=== PATIENT | male | born 1950 | race Caucasian/White ===

== ENCOUNTER → 2020-12-09 10:46 | Outpatient (BNVA) | payer SELFPAY | PROVIDERS: PCP Internal Medicine; Visit Provider Urology ==

== ENCOUNTER → 2021-01-06 13:32 | Outpatient (BNVA) | payer MEDICARE, SELFPAY | PROVIDERS: PCP Internal Medicine; Visit Provider Urology | DX: N40.1 Benign prostatic hyperplasia with lower urinary tract symptoms (principal); N13.8 Other obstructive and reflux uropathy; R35.1 Nocturia | CPT/HCPCS: 51798; 99212 ==

== ENCOUNTER → 2021-07-16 08:26 | Outpatient (BNVA) | payer MEDICARE, SELFPAY | PROVIDERS: PCP Internal Medicine; Visit Provider Urology | DX: Z13.89 Encounter for screening for other disorder (principal) | CPT/HCPCS: Q3014 ==

== ENCOUNTER → 2021-09-23 14:17 | Outpatient (BNVA) | payer MEDICARE, SELFPAY | PROVIDERS: PCP Internal Medicine; Visit Provider Urology | DX: Z13.89 Encounter for screening for other disorder (principal) | CPT/HCPCS: Q3014 ==

== ENCOUNTER → 2021-12-29 13:44 | Outpatient (BNVA) | payer MEDICARE, SELFPAY | PROVIDERS: PCP Internal Medicine; Visit Provider Urology | DX: N13.8 Other obstructive and reflux uropathy (principal); R39.12 Poor urinary stream; R35.1 Nocturia; R39.15 Urgency of urination | CPT/HCPCS: 52000; 99212 ==

== ENCOUNTER → 2022-01-18 14:57 | Outpatient (BNVA) | payer MEDICARE, SELFPAY | PROVIDERS: PCP Internal Medicine; Visit Provider Hospitalist | DX: R91.8 Other nonspecific abnormal finding of lung field (principal); R59.1 Generalized enlarged lymph nodes; R06.00 Dyspnea, unspecified; J41.8 Mixed simple and mucopurulent chronic bronchitis; I25.10 Atherosclerotic heart disease of native coronary artery without angina pectoris; I35.0 Nonrheumatic aortic (valve) stenosis | CPT/HCPCS: 99202 ==

== ENCOUNTER 2022-02-04 10:23 | Outpatient (REF) | payer MEDICARE, SELFPAY ==
--- NOTE | ~2022-02-04 | CT_ITS ---
EXAMINATION: CT CHEST WITHOUT CONTRAST CLINICAL INFORMATION: Nonspecific abnormal findings COMPARISON: None TECHNIQUE: Multidetector volumetric CT imaging of the chest was done. Axial MIP volume rendering provided. Sagittal and coronal reformatted images were obtained. This CT examination was performed using dose optimization techniques as appropriate, variously including the following: *Automated exposure control *Adjustment of mA and/or kV according to patient size (this includes techniques or standardized protocols for targeted exams where dose is matched to indication/reason for exam; i.e. extremities or head) *Use of iterative reconstruction technique DLP: 177 mGy-cm FINDINGS: CONVEX GRINDER: Symmetrically expanded lungs LUNGS: There is mosaic lung attenuation in keeping with small airways disease. Mild bronchial wall thickening. In addition to some motion artifact. There is subtle peripheral interlobular septal thickening and reticulation seen anteriorly is much is posteriorly particularly at the lung bases. There are several areas of peripheral nodular opacities, for example a 5 mm juxtapleural right lateral basilar nodule in image 400/601. There is an ovoid 5 x 8 mm nodule in the right posterior costophrenic sulcus image 451/611. 3-4 mm anterior right upper lobe nodule in image 201/611. There are a few scattered calcified granulomata. Triangular 3 x 5 mm medial left upper lobe nodule in image 133. MEDIASTINUM: There is an enlarged 1.8 x 1.6 cm subcarinal lymph node. Numerous prominent but not pathologically enlarged pretracheal lymph nodes are present. Prominent 8 mm right prevascular lymph node. There is some prominence of the right hilum but no definite lymphadenopathy seen. Three-vessel coronary artery calcification. Normal heart size. No pericardial effusion. PLEURA: There is no pleural effusion. No pleural mass or thickening. AXILLA: No lymphadenopathy. UPPER ABDOMEN: No adrenal mass. Right upper quadrant cholecystectomy. OSSEOUS STRUCTURES: Multilevel degenerative changes. No acute or suspicious osseous abnormality. CT/CT chest wo con IMPRESSION: There is a nonspecific enlarged subcarinal lymph node measuring up to 1.8 x 1.6 cm. The etiology is uncertain. Recommend attention on follow-up. There is a background of mosaic lung attenuation suggesting small airways disease. There are peripheral areas of reticulation which may reflect early fibrosis. In addition, there are bilateral subcentimeter nonspecific pulmonary nodules. The largest measures 5 x 8 mm, average diameter 6.5 mm. According to the UPDATED 2017 Fleischner Society recommendations, the advised follow-up imaging for multiple solid nodules, the largest measuring 6 mm or greater, is: LOW RISK PATIENT: CT at 3-6 months, then consider CT at 18-24 months. HIGH RISK PATIENT: CT at 3-6 months, then at 18-24 months.
== END 2022-02-04 10:24 | disposition home or self-care (01) ==
LOC: HO.CT 10:23
PROVIDERS: PCP Internal Medicine; Visit Provider Hospitalist
DX: R91.8 Other nonspecific abnormal finding of lung field (principal)
CPT/HCPCS: 71250

== ENCOUNTER → 2022-02-08 08:50 | Outpatient (BNVA) | payer MEDICARE, SELFPAY | PROVIDERS: PCP Internal Medicine; Visit Provider Hospitalist | DX: R91.8 Other nonspecific abnormal finding of lung field (principal); R59.1 Generalized enlarged lymph nodes; R06.00 Dyspnea, unspecified; J41.8 Mixed simple and mucopurulent chronic bronchitis; I25.10 Atherosclerotic heart disease of native coronary artery without angina pectoris; I35.0 Nonrheumatic aortic (valve) stenosis | CPT/HCPCS: 99212 ==

== ENCOUNTER 2022-02-09 11:49 | Day surgery (SDC) | payer MEDICARE, SELFPAY ==
--- NOTE | 2022-02-08 14:17 | P.CONAN_ITS ---
Documented by User: Brianna Pearson NP 02/08/22 14:58 HPI - Anesthesia Eval Consult details Narrative: 71yo M for Endoscopic Bronchial Ultrasound Follows cardiology with Dr Stinson. Per telephone call between this provider and Dr Stinson 02/08/22, 1400. Pt with mod to moderate-severe aortic stenosis and CAD. Will not pursue treatment until results of EBUS available (will not cath if bronch shows lung CA). Cardiology recommends avoiding tachycardia and keep hemoglobin stable. OK to proceed with bronchoscopy under general anesthesia with increased risk. Case reviewed with Dr Dominguez. OK to proceed with eval DOS if patient understands increased risk under anesthesia. PMFSH Active Problems Active Problems: All Active Problems (Updated 01/18/22 @ 23:04 by Josemanuel Vasquez MD) Aortic stenosis (Acute) CAD (coronary artery disease) (Acute) Dyspnea (Acute) Chronic bronchitis (Acute) Pulmonary nodules (Acute) Lymphadenopathy (Acute) Urinary urgency (Acute) Nocturia (Acute) Weak urinary stream (Acute) BPH w urinary obs/LUTS (Acute) Past Medical History Medical History Aortic stenosis CAD (coronary artery disease) Chronic bronchitis Diabetes Dyspnea Lymphadenopathy Pulmonary nodules Family History Family History Father Heart attack Stroke Mother Heart attack Cancer COPD (chronic obstructive pulmonary disease) Surgical History Surgical History History of renal stent Hx of carpal tunnel repair Hx of cholecystectomy Social History Social History Alcohol intake: current Alcohol intake frequency: holidays/special occasions only Patient Tobacco Use Status: Never used Tobacco Use of substances other than those prescribed or required for medical reasons: No Are you DNR?: No Advance Directives: No Advance Directives Information Provided: Yes Meds Allergies Allergy/AdvReac Type Severity Reaction Status Date / Time fentanyl Allergy Swelling Verified 02/09/22 12:02 Home Medications Medication Instructions Recorded Confirmed Last Taken Type amlodipine 10 mg tablet 10 mg PO DAILY 12/09/20 07/16/21 Unknown History amlodipine 5 mg tablet 5 mg PO DAILY 12/09/20 07/16/21 Unknown History atorvastatin 20 mg tablet 20 mg PO DAILY 12/09/20 07/16/21 Unknown History bromfenac 0.07 % eye drops 1 drp OPHTHALMIC (EYE) DAILY 12/09/20 07/16/21 Unknown History donepezil 10 mg tablet 10 mg PO BEDTIME 12/09/20 07/16/21 Unknown History hydrochlorothiazide 12.5 mg capsule 12.5 mg PO DAILY 12/09/20 07/16/21 Unknown History losartan 100 mg tablet 100 mg PO DAILY 12/09/20 07/16/21 Unknown History metformin 500 mg tablet,extended 1,000 mg PO BID 12/09/20 07/16/21 Unknown History release 24 hr pantoprazole 40 mg tablet,delayed 40 mg PO DAILY 12/09/20 07/16/21 Unknown History release trazodone 50 mg tablet 50 mg PO BID 12/09/20 07/16/21 Unknown History duloxetine 30 mg capsule,delayed 30 mg PO DAILY 07/16/21 07/16/21 Unknown History release carvedilol 3.125 mg tablet 3.125 mg PO BID 02/08/22 Unknown History finasteride 5 mg tablet 5 mg PO DAILY 02/08/22 Unknown History furosemide 40 mg tablet 40 mg PO DAILY 02/08/22 Unknown History oxybutynin chloride 10 mg 10 mg PO DAILY 02/08/22 Unknown History tablet,extended release 24 hr Exam Exam Date and Time: February 08, 2022 1417 Narrative Narrative: CTA with FFR (Per Cardiology note 01/2022) widespread mediastinal hilar lymphadenopathy extensive calcified plaque throughout his coronary arteries prominent calcific plaque in the proximal mid and distal sections of the LAD, did not appear to be obstruction which was confirmed by FFR/CT significant obstructive disease in dominant third obtuse marginal branch vessel as well as the RCA ECHO 10/2021 (Per T/C with Dr Stinson) EF nml basal inferior wall hypokinetic 39mmHg across aortic valve, KAYLA = 1.4cm2 diastolic dysfunction increased left atrial pressure MRI Brain 01/2022 1. No acute/subacute infarct, mass, hemorrhage, or other intracranial abnormality 2. 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 Chronic small vessel disease. Assessment and Plan Assessment Anesthesia Assessment: Chart Reviewed Documented by User: Amanda Dumont MD 02/09/22 13:02 [facility] Past Medical History Medical History Aortic stenosis CAD (coronary artery disease) Chronic bronchitis Diabetes Dyspnea Lymphadenopathy Pulmonary nodules Family History Family History Father Heart attack Stroke Mother Heart attack Cancer COPD (chronic obstructive pulmonary disease) Surgical History Surgical History History of renal stent Hx of carpal tunnel repair Hx of cholecystectomy History of Problems with Anesthesia: No Social History Social History Alcohol intake: current Alcohol intake frequency: holidays/special occasions only Patient Tobacco Use Status: Never used Tobacco Use of substances other than those prescribed or required for medical reasons: No Are you DNR?: No Advance Directives: No Advance Directives Information Provided: Yes Meds Allergies Allergy/AdvReac Type Severity Reaction Status Date / Time fentanyl Allergy Swelling Verified 02/09/22 12:02 Home Medications Medication Instructions Recorded Confirmed Last Taken Type amlodipine 10 mg tablet 10 mg PO DAILY 12/09/20 07/16/21 Unknown History amlodipine 5 mg tablet 5 mg PO DAILY 12/09/20 07/16/21 Unknown History atorvastatin 20 mg tablet 20 mg PO DAILY 12/09/20 07/16/21 Unknown History bromfenac 0.07 % eye drops 1 drp OPHTHALMIC (EYE) DAILY 12/09/20 07/16/21 Unknown History donepezil 10 mg tablet 10 mg PO BEDTIME 12/09/20 07/16/21 Unknown History hydrochlorothiazide 12.5 mg capsule 12.5 mg PO DAILY 12/09/20 07/16/21 Unknown History losartan 100 mg tablet 100 mg PO DAILY 12/09/20 07/16/21 Unknown History metformin 500 mg tablet,extended 1,000 mg PO BID 12/09/20 07/16/21 Unknown History release 24 hr pantoprazole 40 mg tablet,delayed 40 mg PO DAILY 12/09/20 07/16/21 Unknown History release trazodone 50 mg tablet 50 mg PO BID 12/09/20 07/16/21 Unknown History duloxetine 30 mg capsule,delayed 30 mg PO DAILY 07/16/21 07/16/21 Unknown History release carvedilol 3.125 mg tablet 3.125 mg PO BID 02/08/22 Unknown History finasteride 5 mg tablet 5 mg PO DAILY 02/08/22 Unknown History furosemide 40 mg tablet 40 mg PO DAILY 02/08/22 Unknown History oxybutynin chloride 10 mg 10 mg PO DAILY 02/08/22 Unknown History tablet,extended release 24 hr Exam Airway Mallampati Class: III TM Dist: >3cm Neck ROM: Full Loose/Missing/Broken Teeth: No Heart: RRR Lungs: CTA Assessment and Plan Assessment Anesthesia Assessment: Anesthesia Plan Discussed Final Anesthetic Review History of Problems with Anesthesia: No NPO: Yes ASA Class: III Final Preanesthetic Review: Meds/Allgs Chart Reviewed, Consent Obtained/Reviewed and Anes Risks/Benef Reviewed Patient Risk: Intermediate Procedure Risk: Intermediate Anesthetic Plan Anesthetic Plan: GA Disposition: Standard PACU
[2022-02-09 12:08] VITALS: BMI 30.3
--- NOTE | 2022-02-09 12:10 | MHC.SHP ---
Pre-Procedural Eval Section A Date of Service: 02/09/22 The patient is an INPATIENT: No Changes since office visit: No Cold of Flu in the past 2 weeks, No New Medical Problems, No Changes in Medication and No Patient answered all questions The History & Physical has been completed within 30 days and I have reviewed it.: Yes Section B Chief Complaint: enlarged lymph node Allergies: Allergies Allergy/AdvReac Type Severity Reaction Status Date / Time fentanyl Allergy Swelling Verified 02/09/22 12:02 Plan I have reviewed the history and physical and performed a pertinent physical examination on my patient. No changes have occurred unless specified.
[2022-02-09 12:16] LABS: Hematocrit 39.4 % (42.0-52.0); Mean Corpuscular Hemoglobin 29.7 pg (27.0-33.0); Mean Corpuscular Volume 90.2 fL (80.0-98.0); Mean Platelet Volume 9.5 fL (9.4-12.4); Platelet Count 231 X10*3/uL (160-400); Red Blood Count 4.37 X10*6/uL (4.60-5.80); Red Cell Distribution Width 13.2 % (11.0-16.0); White Blood Count 6.8 X10*3/uL (4.8-10.8)
[2022-02-09 12:19] VITALS: BP 194/69; PULSE 54; RESP 18; TEMP 36.7; O2SAT 99
[2022-02-09 12:20] LABS: Glucose, Whole Blood 110 mg/dL (60-115)
[2022-02-09 12:36] LABS: Anion Gap 13 (12-20); Blood Urea Nitrogen 21 mg/dL (9-16); Calcium 10.4 mg/dL (8.4-10.2); Carbon Dioxide 25 mmol/L (22-29); Chloride 106 mmol/L (96-108); Creatinine Clr Calc Pharmacy 59.6; Estimated Glomerular Filt Rate > 60; Glucose Fasting 107 mg/dL (60-99); Potassium 4.3 mmol/L (3.3-5.1); Sodium 140 mmol/L (135-145)
[2022-02-09] MEDS: Lactated Ringers 1,000 ML 100 ML IVCONT (12:53)
--- NOTE | 2022-02-09 14:24 | PM.OP ---
Brief Operative Note Date of Service: 02/09/22 Pre-op diagnosis: lymphadenoathy Post-op diagnosis: other (Lymphadenopathy, inflammation of the arytenoids, thickened pericardium) Procedure: Endobronchial ultrasound bronchoscopy with transbronchial needle aspiration of station 7 and station 11 L, bronchoscopy with washings and brushings Implants: Surgeon: Josemanuel Vasquez MD Was an [place] [employer] used for this Procedure?: No Estimated blood loss (mL): 1 Pathology: other (station 7 and 11L needle aspiration are with flow cytometry, washings and brushings for cytology) Condition: stable Disposition: same day
[2022-02-09 14:25] VITALS: BP 137/52; PULSE 54; RESP 20; TEMP 36.3; O2SAT 99
[2022-02-09 14:40] VITALS: BP 114/95; PULSE 52; RESP 18; O2SAT 98
[2022-02-09 14:55] VITALS: BP 146/52; PULSE 50; RESP 18; O2SAT 98
[2022-02-09 15:10] VITALS: BP 154/53; PULSE 49; RESP 18; O2SAT 98
[2022-02-09 15:25] VITALS: BP 149/56; PULSE 50; RESP 18; O2SAT 98
--- NOTE | 2022-02-11 08:43 | OP_ITS ---
SURGEON: Josemanuel Vasquez MD PREOPERATIVE DIAGNOSIS: POSTOPERATIVE DIAGNOSIS: PROCEDURE PERFORMED: Endobronchial ultrasound bronchoscopy with transbronchial needle aspirations of mediastinal hilar lymph nodes as well as bronchoscopy with washings and brushings. ESTIMATED BLOOD LOSS: COMPLICATIONS: ANESTHESIA: LMA with propofol. ASSISTANTS: SPECIMENS: ASA CLASSIFICATION: 3. PREOPERATIVE DIAGNOSES: Lymphadenopathy and pulmonary nodules. POSTOPERATIVE DIAGNOSES: Lymphadenopathy inflammation of the larynx, primarily the arytenoids, thickened pericardium, and tracheomalacia. DESCRIPTION OF PROCEDURE: The patient was sedated and LMA was in place. The flexible digital bronchoscope with ultrasound, EBUS was introduced via the LMA to the level of the larynx. The larynx appeared to be inflamed with inflammation of the arytenoid suggesting the possibility of reflux disease. The vocal cords did move symmetrically to the midline. After instilling lidocaine, the bronchoscope was then passed the vocal cords to the level of the trachea. There was a little plateauing of the anterior part of the tracheal rings suggesting some degree of malacia, but minimal. No evidence of any dynamic collapse of the airways noted. After instilling additional lidocaine, the bronchoscope with EBUS was then introduced further down to the level of the main joe. Using ultrasound guidance, different lymph node stations were accessed. No significant paratracheal lymph nodes evaluated. He did have about 2 cm subcarinal lymph node and about 1.5 cm hilar lymph node primary on the left hilum. Using the ultrasound guidance, real-time transbronchial needle aspirations were collected from stations 7, multiple passes. Rapid on-site qa software test engineer noted the presence of lymphocytes and some of the specimens were sent for flow cytometry. The other specimens were made into slides without any evidence of any malignancies. The cell block was also be able to visualize in further details. Both station 7 and station 11L were sampled via EBUS, transbronchial needle aspirations. Awaiting results. The bronchoscope was then removed and replaced with the regular bronchoscopy. The flexible digital bronchoscope was inserted over the airway and evaluated the whole tracheobronchial tree up to the subsegmental level. No endobronchial lesions or masses noted. He did have some slight bleeding at the site of the needle aspirations, but minimal, and reached good hemostasis spontaneously. The bronchial washings were collected bilaterally, sent both for cytology and also for microbiology. In addition to that, a cytologic brush was introduced into the right middle lobe, specially because he had a nodule in that distribution and brushings were sent for cytology. The patient tolerated the procedure well. Vital signs were stable throughout the procedure. INTERPRETATION: 1. Successful EBUS with transbronchial needle aspirations of station 7 and 11. 2. Brushings of the right middle lobe. 3. Bilateral lung washings. 4. Evidence of arytenoid inflammation likely from reflux. 5. Minimal degree of tracheomalacia. MD KENNY Cohen/NICOLE / [id number]
== END 2022-02-09 16:14 | disposition home or self-care (01) ==
PROVIDERS: Nurse Practitioner; Absent Provider Internal Medicine Cardiovascular Disease; PCP Internal Medicine; Visit Provider Hospitalist
PROC: (CPT 31652; principal; 2022-02-09 13:00)
DX: R59.1 Generalized enlarged lymph nodes (principal); R91.8 Other nonspecific abnormal finding of lung field; J41.8 Mixed simple and mucopurulent chronic bronchitis; R06.00 Dyspnea, unspecified; Z57.5 Occupational exposure to toxic agents in other industries; I25.10 Atherosclerotic heart disease of native coronary artery without angina pectoris; I35.0 Nonrheumatic aortic (valve) stenosis; E11.9 Type 2 diabetes mellitus without complications; Z79.84 Long term (current) use of oral hypoglycemic drugs; Z79.51 Long term (current) use of inhaled steroids; Z88.8 Allergy status to other drugs, medicaments and biological substances
CPT/HCPCS: 31652; 31623; 36415; 80048; 82947; 85027; 87071; 87116; 87205; 88112; 88172; 88173; 88177; 88184; 88185; 88305; J0171; J1170; J2250; J2405

== ENCOUNTER 2022-02-22 08:32 | Outpatient (REF) | payer MEDICARE, SELFPAY ==
--- NOTE | 2022-02-22 | PFT_ITS ---
INDICATION: Dyspnea. SPIROMETRY: FEV1 to FVC of 80% with an FEV1 of 2.27 L, which is 83% predicted, and an FVC of 2.85 L, which is 76% predicted. No significant response to bronchodilators noted. Maximum voluntary ventilation 59% predicted. LUNG VOLUMES: Total lung capacity 71% predicted. DIFFUSION CAPACITY: DLCO 70% predicted. COMPARISONS: None. INTERPRETATION: No obstructive ventilatory defect. No significant response to bronchodilators noted. There is a moderate decrease in maximum voluntary ventilation secondary to deconditioning and also his cardiovascular disease. His lung volumes do demonstrate a restrictive ventilatory defect consistent with mild restrictive lung disease. In addition to that, there is a mild diffusion impairment, likely secondary to underlying cardiovascular and pulmonary vascular disease. Also to note, the diffusion capacity does correct to normal when correcting for the alveolar volume suggesting some degree of hyperexpansion of the lungs. Clinical correlation warranted. Josemanuel Vasquez MD MR/MODL / [id number]
== END 2022-02-22 08:33 | disposition home or self-care (01) ==
LOC: HO.RESP 08:32
PROVIDERS: PCP Internal Medicine; Visit Provider Hospitalist
DX: R06.00 Dyspnea, unspecified (principal); Z79.899 Other long term (current) drug therapy
CPT/HCPCS: 94060; 94727; 94729

== ENCOUNTER → 2022-02-23 08:20 | Outpatient (BNVA) | payer MEDICARE, SELFPAY | PROVIDERS: PCP Internal Medicine; Visit Provider Urology | DX: N40.1 Benign prostatic hyperplasia with lower urinary tract symptoms (principal); N13.8 Other obstructive and reflux uropathy; R39.12 Poor urinary stream; R35.1 Nocturia | CPT/HCPCS: Q3014 ==

== ENCOUNTER → 2022-03-24 08:58 | Outpatient (BNVA) | payer MEDICARE, SELFPAY | PROVIDERS: PCP Internal Medicine; Visit Provider Hospitalist | DX: Z01.811 Encounter for preprocedural respiratory examination (principal); R91.8 Other nonspecific abnormal finding of lung field; R59.1 Generalized enlarged lymph nodes; J41.8 Mixed simple and mucopurulent chronic bronchitis; R06.00 Dyspnea, unspecified; I25.10 Atherosclerotic heart disease of native coronary artery without angina pectoris; I35.0 Nonrheumatic aortic (valve) stenosis | CPT/HCPCS: 99212 ==

== ENCOUNTER 2022-09-01 12:37 | Outpatient (REF) | payer MEDICARE, SELFPAY ==
--- NOTE | ~2022-09-01 | CT_ITS ---
EXAMINATION: CT CHEST WITHOUT CONTRAST CLINICAL INFORMATION: Pulmonary nodules. COMPARISON: Chest CT from 02/04/2022. TECHNIQUE: Multidetector volumetric CT imaging of the chest was done. Axial MIP volume rendering provided. Sagittal and coronal reformatted images were obtained. This CT examination was performed using dose optimization techniques as appropriate, variously including the following: *Automated exposure control *Adjustment of mA and/or kV according to patient size (this includes techniques or standardized protocols for targeted exams where dose is matched to indication/reason for exam; i.e. extremities or head) *Use of iterative reconstruction technique DLP: 198 mGy-cm FINDINGS: LUNGS AND PLEURA: Lungs chronically have mosaic attenuation there is mild centrilobular emphysema. There is stable appearance of mild peripheral subpleural reticular opacity that mainly involves mid to lower lung zones without honeycombing. There is subsegmental atelectasis of the lingula. No pleural effusion. NODULES: Old small calcified nodule in right upper lobe (209, series 5). 0.3 cm pleural-based nodule of the posterior right upper lobe and 0.3 cm solid nodule in the anterior right upper lobe (206, series 5) are unchanged (163, series 5). 0.5 cm pleural-based nodule of the lateral right lower lobe is unchanged (416, series 5). The ovoid nodule of 0.6 cm average diameter at the right lateral costophrenic sulcus is unchanged (480, series 5). A stable 0.4 cm noncalcified nodule is present in the left upper lobe (153, series 5). No new lung nodule or mass. CARDIOVASCULAR: The heart size is normal. Mitral valve annulus is calcified and aortic valve is replaced. Three-vessel coronary artery atherosclerotic calcification. Thoracic aorta atherosclerosis without aneurysm. Pulmonary arteries are in the normal size range. MEDIASTINUM AND LOWER NECK: No mediastinal mass. The esophagus and thyroid gland are unremarkable. LYMPHATICS: No axillary or internal mammary lymphadenopathy. There is stable mild enlargement of mediastinal lymph nodes. A subcarinal lymph node is approximately 1.2 cm in short axis dimension. A precarinal lymph node with fatty hilum is 1.1 cm in short axis dimension. No enlarging lymph nodes. UPPER ABDOMEN: Adrenal glands are normal. Gallbladder is surgically absent. Atherosclerotic calcification of the aorta, splenic artery and SMA. Adrenal glands are normal. Simple cysts of the kidneys, largest visualized on the right measuring 7.6 cm AP. No renal imaging follow-up is recommended for simple cysts. SKELETAL AND CHEST WALL: There is lack of osseous union of the midline sternotomy. No acute findings within the degenerated spine. Diffuse idiopathic skeletal hyperostosis as manifest by presence of extensive bulky flowing anterior ligament ossification of the thoracic spine. Mild gynecomastia is noted. CT/CT chest wo IV con IMPRESSION: * Lungs chronically have mosaic attenuation which suggests air trapping phenomenon from small airways inflammation as well as mild emphysematous changes. * Chronic mild interstitial lung disease without honeycombing. * Bilateral pulmonary nodules are stable compared to 02/04/2022. If deemed clinically appropriate, based on Fleischner Society guidelines, obtain noncontrast chest CT follow-up in 12 months. * There is stable appearance of mild mediastinal lymphadenopathy. No suspicious enlarging lymph nodes.
== END 2022-09-01 12:38 | disposition home or self-care (01) ==
LOC: HO.CT 12:37
PROVIDERS: PCP Internal Medicine; Visit Provider Hospitalist
DX: R91.8 Other nonspecific abnormal finding of lung field (principal); R59.1 Generalized enlarged lymph nodes
CPT/HCPCS: 71250

== ENCOUNTER → 2022-09-29 08:53 | Outpatient (BNVA) | payer MEDICARE, SELFPAY | PROVIDERS: PCP Internal Medicine; Visit Provider Hospitalist | DX: R91.8 Other nonspecific abnormal finding of lung field (principal); R59.1 Generalized enlarged lymph nodes; J41.8 Mixed simple and mucopurulent chronic bronchitis; I25.10 Atherosclerotic heart disease of native coronary artery without angina pectoris; I35.0 Nonrheumatic aortic (valve) stenosis | CPT/HCPCS: 99212 ==

== ENCOUNTER 2023-04-06 08:53 | Outpatient (AMB) | payer MEDICARE, SELFPAY ==
--- NOTE | 2023-04-06 08:56 | A.OFFVIS_ITS ---
Intake Vital Signs 04/06/23 08:58 Height 5 ft 6 in Weight 185 lb BMI 29.9 BP 110/62 Blood Pressure Location Lt brachial Position Standing Pulse 60 Pulse Source Pulse Oximeter Pulse Oximetry (%) 98 Oxygen Delivery Method Room Air Intake Visit Reasons: COPD Intake Note: pt is here for follow up and states little short of breath, some dizzy, states weird sounds during sleep Allergies fentanyl Allergy (Verified 04/06/23 09:03) Swelling HPI HPI Comments History of Present Illness Details The patient is a 73-year-old gentleman with a known history of CAD, aortic stenosis history of hemorrhagic strokes and now with worsening dyspnea on exertion. 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 He was exposed to multiple fumes and apparently the mask that he was provided was not sufficient. So therefore for about 20 years he was exposed to disease fumes and toxins. At some point, the patient was evaluated by Pulmonary back in early 1999 and he did undergo imaging studies at [facility] where he was told that he likely had lung cancer. Ultimately he did follow-up with Pulmonary that point which ruled out the possibility of lung cancer. He did indeed have underlying pulmonary nodules at that time. More recently the patient has been evaluated for his cardiac issues. He did undergo a recent cardiac CT scan a [facility] which was personally by me. This CT scan that was done on 12/26/2021 demonstrated new once id mediastinal or hilar lymphadenopathy along with evidence of chronic bronchitis and significant air trapping. The imaging study is very limited in view the fact that it is primarily focused on the cardiac pictures and we do not have full will imaging of the lung windows. Therefore really hard to know exactly if the nodular densities have changed in size and there is any evidence of airspace disease elsewhere. But, based on what I see I do not see any evidence of consolidations to be consistent with pneumonia. The patient has not had any recent pulmonary function studies. In regards his multiple ailments he did have a rheumatology evaluation many years ago which evaluated him for different connective tissue conditions including alkalosising spondylitis along with other rheumatological issues. He was told that his workup was negative for any these findings. In view of the significant lymphadenopathy and the underlying pulmonary nodules it is worthwhile looking into this issue again. His cardiac CT scan also demonstrated significant cardiac disease. 02/08/2022 the patient is here for pulmonary follow-up visit. He continues to have shortness of breath. Recently underwent an MRI of the brain demonstrating no acute disease. However he does have chronic changes. he did start the inhaler and his respiratory status has improved. The shortness of breath has been improving which is reassuring. Patient also underwent a repeat CT scan demonstrating persistent lymphadenopathy. He has small subcentimeter pulmonary nodules that are less concerning. In addition to that he did undergo blood work which was pretty nonrevealing as far as the etiology of the lymphadenopathy. I did speak to Cardiology. The per for further evaluation and testing of the lymphadenopathy before putting him through an intensive evaluation for the aortic stenosis and CAD. The patient understands that he is high risk for any procedure due to his underlying cardiovascular disease. Anesthesia did have a discussion with Cardiology the patient does have increased risk but at this point would need to have further evaluation for the lymphadenopathy in order to move for with a cardiac testing. The patient currently is agreeable to undergo endobronchial ultrasound bronchoscopy. Will plan to do that tomorrow February 09. 03/24/2022 the patient is here for a pulmonary follow-up visit. Overall she is doing about the same. Complaining of dyspnea on exertion. We did review his bronchoscopy results. His cultures were negative. Cytology was negative. He did undergo endobronchial ultrasound bronchoscopy in the lymph nodes were consistent with normal lymphocytes. No evidence of any malignancy or lymphoma noted. The patient did have further cardiac evaluation. Appears that he needs both cardiac bypass surgery in on aortic valve replacement. He was going to have surgery but then postponed it now for few weeks from now. In the meantime he did undergo pulmonary function studies. It appears that he has a mild degree of restrictive lung disease. The patient is concerned about surgery. I did explain to him from a pulmonary standpoint the patient does not have significant risks for postoperative pulmonary complications. However, he may need some oxygen specially if the restriction gets worse due to and a the cardiothoracic surgery. The patient may proceed with anesthesia and cardiac surgery from a pulmonary standpoint. 09/29/2022 the patient is here for a pulmonary follow-up visit. He did undergo his surgery. He is healing well from his cardiac surgery. However he has issues with his mentation. Sometimes he is more forgetful per his . He was given a prescription for Trelegy inhaler and he did pick it up. However, he has not used it. His does remind him but he also tends to forget. In the office we did review his last CT scan of the chest that he had recently. He does have some of day pattern in the pulmonary nodules in the lymphadenopathy appears to be stable if not better. With the mosaic pattern I did explain to t he patient that using a bronchodilator will help improve his respiratory capacity. I did provide him with a nebulized treatment in the office in the patient did feel better. Therefore I will go ahead and order a nebulizer for him that he can use twice a day with the hope that he can improve his respiratory capacity. 04/06/2023 the patient is here for pulmonary follow-up visit. The patient is do ing very well from a respiratory status. Seems like after having cardiac surgery his respiratory issues have subsided significantly. He has not required his nebulizer no longer using any inhalers. I did recommend he use a short- acting beta agonist as needed. I did give her prescribe a prescription. Otherwise he can also use the nebulizer as needed. He does have some slight end expiratory wheezing still on examination. He is having issues with question seizures and also vertigo. That is really limiting his the ability to exercise and walk. Hopefully if his symptoms subsided can start exercising more regularly in building up his respiratory capacity. His last CT scan of the chest was back in August 2022 demonstrating pulmonary nodules. Will plan to repeat the CT scan sometime in the winter of 2023 to follow-up with the pulmonary nodules. [facility] Medical History Aortic stenosis CAD (coronary artery disease) Chronic bronchitis Diabetes Dyspnea Lymphadenopathy Pulmonary nodules Surgical History History of renal stent Hx of carpal tunnel repair Hx of cholecystectomy Family History Father Heart attack Stroke Mother Heart attack Cancer COPD (chronic obstructive pulmonary disease) Social History Alcohol intake: current Alcohol intake frequency: holidays/special occasions only Patient Tobacco Use Status: Never used Tobacco Review of Systems Const Reports body aches and Reports fatigue Eyes Denies exophthalmos ENT Denies change in voice Card Denies chest pain and Reports dyspnea on exertion Resp Reports cough, Reports dyspnea on exertion and Denies wheezing GI Denies hematochezia Reports no additional complaints Musc Reports back pain, Reports myalgias and Reports arthralgias Skin/Breast Denies rash Neuro Reports no additional complaints, Denies Abnormal speech present and Reports memory loss Psych Reports no additional complaints and Reports memory loss Endo Reports no additional complaints and Reports fatigue Sea/Lymph Reports no additional complaints Aller/Immun Reports no additional complaints and Denies wheezing Physical Exam Vital Signs: Last Vital Signs Pulse 60 04/06/23 08:58 BP 110/62 04/06/23 08:58 Pulse Ox 98 04/06/23 08:58 Oxygen Delivery Method Room Air 04/06/23 08:58 BMI result Body Mass Index 29.9 Const General: alert Neck Neck: Yes normal visual inspection, Yes full ROM and Yes no lymphadenopathy Chest Chest palpation & inspection: normal inspection of the chest Resp Auscultation: clear to auscultation bilaterally and no wheezes Cardio Rate: regular rate Rhythm: regular rhythm Heart sounds: S1 normal heart sound present, S2 normal heart sound present and Murmur heart sound present GI Palpation (GI): Soft to palpation and nontender Auscultation: normal bowel sounds Skin General skin exam: rashes and/or lesions noted Neuro Speech: No Abnormal speech present Assessment & Plan Assessment & Plan (1) Pulmonary nodules: Code(s): R91.8 - Other nonspecific abnormal finding of lung field (2) Lymphadenopathy: Code(s): R59.1 - Generalized enlarged lymph nodes (3) Chronic bronchitis: Code(s): J42 - Unspecified chronic bronchitis Qualifiers: Chronic bronchitis type: mixed simple and mucopurulent Qualified Code(s): J41.8 - Mixed simple and mucopurulent chronic bronchitis (4) Dyspnea: Comment: better Code(s): R06.00 - Dyspnea, unspecified Qualifiers: Dyspnea type: dyspnea on exertion Qualified Code(s): R06.00 - Dyspnea, unspecified (5) CAD (coronary artery disease): Code(s): I25.10 - Atherosclerotic heart disease of [place] coronary artery without angina pectoris Qualifiers: Associated angina: without angina Coronary Disease-Associated Artery/Lesion type: unspecified vessel or lesion type [place] vs. transplanted heart: [place] heart Qualified Code(s): I25.10 - Atherosclerotic heart disease of [place] coronary artery without angina pectoris Plan stop Trelegy inhaler for his chronic bronchitis stop Nebulizer with Duoneb BID MIKE as needed Repeat CT scan of the chest in September 2023 Follow-up in 6-8 months Orders: Orders CT chest wo IV con 10/20/23 R91.8 - Other nonspecific abnormal finding of lung field Medications: New albuterol sulfate 90 mcg/actuation 2 inhalations inhalation Q6H PRN 18 grams 12RF shortness of breath or wheezing 30 days J44.9 - Chronic obstructive pulmonary disease, unspecified Coding Level of Care Code Est Pt Level 4 (56777) Diagnoses Pulmonary nodules R91.8 Lymphadenopathy R59.1 Chronic bronchitis J41.8 Chronic bronchitis type: mixed simple and mucopurulent Dyspnea R06.00 Dyspnea type: dyspnea on exertion CAD (coronary artery disease) I25.10 Associated angina: without angina Coronary Disease-Associated Artery/Lesion type: unspecified vessel or lesion type [place] vs. transplanted heart: [place] heart Time Spent (min) 18
[2023-04-06 08:58] VITALS: BP 110/62; PULSE 60; O2SAT 98; BMI 29.9
== END 2023-04-06 09:24 | disposition home or self-care (01) ==
PROVIDERS: PCP Internal Medicine; Visit Provider Hospitalist
DX: R91.8 Other nonspecific abnormal finding of lung field (principal); R59.1 Generalized enlarged lymph nodes; J41.8 Mixed simple and mucopurulent chronic bronchitis; R06.00 Dyspnea, unspecified; I25.10 Atherosclerotic heart disease of native coronary artery without angina pectoris
CPT/HCPCS: 99214

== ENCOUNTER → 2023-04-06 08:53 | Outpatient (BNVA) | payer MEDICARE, SELFPAY | PROVIDERS: Visit Provider Hospitalist | DX: J41.8 Mixed simple and mucopurulent chronic bronchitis (principal); R91.8 Other nonspecific abnormal finding of lung field; R59.1 Generalized enlarged lymph nodes; R06.00 Dyspnea, unspecified; I25.10 Atherosclerotic heart disease of native coronary artery without angina pectoris | CPT/HCPCS: 99212 ==

== ENCOUNTER 2023-04-27 09:08 | Outpatient (AMB) | payer MEDICARE, SELFPAY ==
[2023-04-27 09:35] VITALS: BP 138/70; PULSE 78; O2SAT 98; BMI 29.6
--- NOTE | 2023-04-27 09:35 | A.OFFVIS_ITS ---
Intake Vital Signs 04/27/23 09:35 Height 5 ft 6 in Weight 183 lb 3.266 oz BMI 29.6 BP 138/70 Blood Pressure Location Lt brachial Position Sitting Pulse 78 Pulse Source Pulse Oximeter Pulse Oximetry (%) 98 Oxygen Delivery Method Room Air Intake Visit Reasons: copd/ER follow up Business Management Specialist Required: No Allergies fentanyl Allergy (Verified 04/27/23 09:39) Swelling HPI HPI Comments History of Present Illness Details The patient is a 73-year-old gentleman with a known history of CAD, aortic stenosis history of hemorrhagic strokes and now with worsening dyspnea on exertion. 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 He was exposed to multiple fumes and apparently the mask that he was provided was not sufficient. So therefore for about 20 years he was exposed to disease fumes and toxins. At some point, the patient was evaluated by Pulmonary back in early 1999 and he did undergo imaging studies at [facility] where he was told that he likely had lung cancer. Ultimately he did follow-up with Pulmonary that point which ruled out the possibility of lung cancer. He did indeed have underlying pulmonary nodules at that time. More recently the patient has been evaluated for his cardiac issues. He did undergo a recent cardiac CT scan a [facility] which was personally by me. This CT scan that was done on 12/26/2021 demonstrated new once id mediastinal or hilar lymphadenopathy along with evidence of chronic bronchitis and significant air trapping. The imaging study is very limited in view the fact that it is primarily focused on the cardiac pictures and we do not have full will imaging of the lung windows. Therefore really hard to know exactly if the nodular densities have changed in size and there is any evidence of airspace disease elsewhere. But, based on what I see I do not see any evidence of consolidations to be consistent with pneumonia. The patient has not had any recent pulmonary function studies. In regards his multiple ailments he did have a rheumatology evaluation many years ago which evaluated him for different connective tissue conditions including alkalosising spondylitis along with other rheumatological issues. He was told that his workup was negative for any these findings. In view of the significant lymphadenopathy and the underlying pulmonary nodules it is worthwhile looking into this issue again. His cardiac CT scan also demonstrated significant cardiac disease. 02/08/2022 the patient is here for pulmonary follow-up visit. He continues to have shortness of breath. Recently underwent an MRI of the brain demonstrating no acute disease. However he does have chronic changes. he did start the inhaler and his respiratory status has improved. The shortness of breath has been improving which is reassuring. Patient also underwent a repeat CT scan demonstrating persistent lymphadenopathy. He has small subcentimeter pulmonary nodules that are less concerning. In addition to that he did undergo blood work which was pretty nonrevealing as far as the etiology of the lymphadenopathy. I did speak to Cardiology. The per for further evaluation and testing of the lymphadenopathy before putting him through an intensive evaluation for the aortic stenosis and CAD. The patient understands that he is high risk for any procedure due to his underlying cardiovascular disease. Anesthesia did have a discussion with Cardiology the patient does have increased risk but at this point would need to have further evaluation for the lymphadenopathy in order to move for with a cardiac testing. The patient currently is agreeable to undergo endobronchial ultrasound bronchoscopy. Will plan to do that tomorrow February 09. 03/24/2022 the patient is here for a pulmonary follow-up visit. Overall she is doing about the same. Complaining of dyspnea on exertion. We did review his bronchoscopy results. His cultures were negative. Cytology was negative. He did undergo endobronchial ultrasound bronchoscopy in the lymph nodes were consistent with normal lymphocytes. No evidence of any malignancy or lymphoma noted. The patient did have further cardiac evaluation. Appears that he needs both cardiac bypass surgery in on aortic valve replacement. He was going to have surgery but then postponed it now for few weeks from now. In the meantime he did undergo pulmonary function studies. It appears that he has a mild degree of restrictive lung disease. The patient is concerned about surgery. I did explain to him from a pulmonary standpoint the patient does not have significant risks for postoperative pulmonary complications. However, he may need some oxygen specially if the restriction gets worse due to and a the cardiothoracic surgery. The patient may proceed with anesthesia and cardiac surgery from a pulmonary standpoint. 09/29/2022 the patient is here for a pulmonary follow-up visit. He did undergo his surgery. He is healing well from his cardiac surgery. However he has issues with his mentation. Sometimes he is more forgetful per his . He was given a prescription for Trelegy inhaler and he did pick it up. However, he has not used it. His does remind him but he also tends to forget. In the office we did review his last CT scan of the chest that he had recently. He does have some of day pattern in the pulmonary nodules in the lymphadenopathy appears to be stable if not better. With the mosaic pattern I did explain to the patient that using a bronchodilator will help improve his respiratory capacity. I did provide him with a nebulized treatment in the office in the patient did feel better. Therefore I will go ahead and order a nebulizer for him that he can use twice a day with the hope that he can improve his resp iratory capacity. 04/06/2023 the patient is here for pulmonary follow-up visit. The patient is doing very well from a respiratory status. Seems like after having cardiac surgery his respiratory issues have subsided significantly. He has not required his nebulizer no longer using any inhalers. I did recommend he use a short- acting beta agonist as needed. I did give her prescribe a prescription. Otherwise he can also use the nebulizer as needed. He does have some slight end expiratory wheezing still on examination. He is having issues with question seizures and also vertigo. That is really limiting his the ability to exercise and walk. Hopefully if his symptoms subsided can start exercising more regularly in building up his respiratory capacity. His last CT scan of the chest was back in August 2022 demonstrating pulmonary nodules. Will plan to repeat the CT scan sometime in the winter of 2023 to follow-up with the pulmonary nodules. 04/27/2023 The patient is here for a hospital F/U visit. Having alot of GI complaints with N/V and diarrhea. He also had subjective fevers and chills, fatigue and weight loss. He was admitted to [facility] and had aCT abdomen followed by a CT chest. I personally reviewed the CT chest from 09/09 and 03/2023. The appears to have a 5cm mass like density in the left infrahilar area associated with a post obstructive pneumonia and pleural effusion. He was told her likely had cancer. He did not want to pursue any agressive dianostic interventions. He is aggreeable to a PET scan. In the meantime, we will keep him a longer course of antibiotics. [facility] Medical History (Updated 04/27/23 @ 22:58 by Josemanuel Vasquez MD) Aortic stenosis CAD (coronary artery disease) Chronic bronchitis Diabetes Dyspnea Lung mass Lymphadenopathy Pulmonary nodules Surgical History History of renal stent Hx of carpal tunnel repair Hx of cholecystectomy Family History Father Heart attack Stroke Mother Heart attack Cancer COPD (chronic obstructive pulmonary disease) Social History Alcohol intake: current Alcohol intake frequency: holidays/special occasions only Patient Tobacco Use Status: Never used Tobacco Review of Systems Const Reports body aches, Reports chills, Reports fatigue, Reports fever(s), Reports poor appetite and Reports weight loss Eyes Denies exophthalmos ENT Denies change in voice Card Denies chest pain and Reports dyspnea on exertion Resp Reports cough, Reports dyspnea on exertion and Denies wheezing GI Reports as per HPI, Reports bloating, Denies hematochezia, Reports change in stool character, Reports constipation, Reports diarrhea, Reports loose stools and Reports vomiting Reports no additional complaints Musc Reports back pain, Reports myalgias and Reports arthralgias Skin/Breast Denies rash Neuro Reports no additional complaints, Denies Abnormal speech present and Reports memory loss Psych Reports no additional complaints and Reports memory loss Endo Reports no additional complaints and Reports fatigue Sea/Lymph Reports no additional complaints Aller/Immun Reports no additional complaints and Denies wheezing Physical Exam Vital Signs: Last Vital Signs Pulse 78 04/27/23 09:35 BP 138/70 04/27/23 09:35 Pulse Ox 98 04/27/23 09:35 Oxygen Delivery Method Room Air 04/27/23 09:35 BMI result Body Mass Index 29.6 Const General: alert Neck Neck: Yes normal visual inspection, Yes full ROM and Yes no lymphadenopathy Chest Chest palpation & inspection: normal inspection of the chest Resp Auscultation: clear to auscultation bilaterally and no wheezes Cardio Rate: regular rate Rhythm: regular rhythm Heart sounds: S1 normal heart sound present, S2 normal heart sound present and Murmur heart sound present GI Palpation (GI): Soft to palpation and nontender Auscultation: normal bowel sounds Skin General skin exam: rashes and/or lesions noted Neuro Speech: No Abnormal speech present Assessment & Plan Assessment & Plan (1) Lung mass: Code(s): R91.8 - Other nonspecific abnormal finding of lung field (2) Pulmonary nodules: Code(s): R91.8 - Other nonspecific abnormal finding of lung field (3) Lymphadenopathy: Code(s): R59.1 - Generalized enlarged lymph nodes (4) Chronic bronchitis: Code(s): J42 - Unspecified chronic bronchitis Qualifiers: Chronic bronchitis type: mixed simple and mucopurulent Qualified Code(s): J41.8 - Mixed simple and mucopurulent chronic bronchitis (5) Dyspnea: Comment: better Code(s): R06.00 - Dyspnea, unspecified Qualifiers: Dyspnea type: dyspnea on exertion Qualified Code(s): R06.00 - Dyspnea, unspecified (6) CAD (coronary artery disease): Code(s): I25.10 - Atherosclerotic heart disease of [place] coronary artery without angina pectoris Qualifiers: Coronary Disease-Associated Artery/Lesion type: unspecified vessel or lesion type [place] vs. transplanted heart: [place] heart Associated angina: without angina Qualified Code(s): I25.10 - Atherosclerotic heart disease of [place] coronary artery without angina pectoris Plan PET scan to assess lung mass in the left infrahilar mass start Augmentin MIKE as needed Follow-up in 3-4 weeks Orders: Orders PET CT fusion skull to thigh Today R91.8 - Other nonspecific abnormal finding of lung field Medications: New amoxicillin-pot clavulanate 875-125 mg 1 tab PO BID 21 days 42 tabs 0RF Coding Level of Care Code Est Pt Level 5 (02655) Diagnoses Lung mass R91.8 Pulmonary nodules R91.8 Lymphadenopathy R59.1 Chronic bronchitis J41.8 Chronic bronchitis type: mixed simple and mucopurulent Dyspnea R06.00 Dyspnea type: dyspnea on exertion CAD (coronary artery disease) I25.10 Coronary Disease-Associated Artery/Lesion type: unspecified vessel or lesion type [place] vs. transplanted heart: [place] heart Associated angina: without angina Time Spent (min) 45
== END 2023-04-27 10:11 | disposition home or self-care (01) ==
PROVIDERS: PCP Internal Medicine; Visit Provider Hospitalist
DX: R91.8 Other nonspecific abnormal finding of lung field (principal); R59.1 Generalized enlarged lymph nodes; J41.8 Mixed simple and mucopurulent chronic bronchitis; I25.10 Atherosclerotic heart disease of native coronary artery without angina pectoris
CPT/HCPCS: 99214

== ENCOUNTER → 2023-04-27 09:08 | Outpatient (BNVA) | payer MEDICARE, SELFPAY | PROVIDERS: PCP Internal Medicine; Visit Provider Hospitalist | DX: R91.8 Other nonspecific abnormal finding of lung field (principal); R59.1 Generalized enlarged lymph nodes; J41.8 Mixed simple and mucopurulent chronic bronchitis; R06.00 Dyspnea, unspecified; I25.10 Atherosclerotic heart disease of native coronary artery without angina pectoris | CPT/HCPCS: 99212 ==

== ENCOUNTER 2023-05-26 09:40 | Outpatient (AMB) | payer MEDICARE, SELFPAY ==
[2023-05-26 10:15] VITALS: BP 124/60; PULSE 60; O2SAT 100; BMI 29.0
--- NOTE | 2023-05-26 10:15 | A.OFFVIS_ITS ---
Intake Vital Signs 05/26/23 10:15 Height 5 ft 6 in Weight 180 lb BMI 29.0 BP 124/60 Blood Pressure Location Rt brachial Position Sitting Pulse 60 Pulse Source Pulse Oximeter Pulse Oximetry (%) 100 Oxygen Delivery Method Room Air Intake Visit Reasons: copd Allergies fentanyl Allergy (Verified 05/26/23 10:16) Swelling erythromycin base Adverse Reaction (Severe, Verified 05/26/23 10:16) Rash HPI HPI Comments History of Present Illness Details The patient is a 73-year-old gentleman with a known history of CAD, aortic stenosis history of hemorrhagic strokes and now with worsening dyspnea on exertion. 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 He was exposed to multiple fumes and apparently the mask that he was provided was not sufficient. So therefore for about 20 years he was exposed to disease fumes and toxins. At some point, the patient was evaluated by Pulmonary back in early 1999 and he did undergo imaging studies at [facility] where he was told that he likely had lung cancer. Ultimately he did follow-up with Pulmonary that point which ruled out the possibility of lung cancer. He did indeed have underlying pulmonary nodules at that time. More recently the patient has been evaluated for his cardiac issues. He did undergo a recent cardiac CT scan a [facility] which was personally by me. This CT scan that was done on 12/26/2021 demonstrated new once id mediastinal or hilar lymphadenopathy along with evidence of chronic bronchitis and significant air trapping. The imaging study is very limited in view the fact that it is pr imarily focused on the cardiac pictures and we do not have full will imaging of the lung windows. Therefore really hard to know exactly if the nodular densities have changed in size and there is any evidence of airspace disease elsewhere. But, based on what I see I do not see any evidence of consolidations to be consistent with pneumonia. The patient has not had any recent pulmonary function studies. In regards his multiple ailments he did have a rheumatology evaluation many years ago which evaluated him for different connective tissue conditions including alkalosising spondylitis along with other rheumatological issues. He was told that his workup was negative for any these findings. In view of the significant lymphadenopathy and the underlying pulmonary nodules it is worthwhile looking into this issue again. His cardiac CT scan also demonstrated significant cardiac disease. 02/08/2022 the patient is here for pulmonary follow-up visit. He continues to have shortness of breath. Recently underwent an MRI of the brain demonstrating no acute disease. However he does have chronic changes. he did start the inhaler and his respiratory status has improved. The shortness of breath has been improving which is reassuring. Patient also underwent a repeat CT scan demonstrating persistent lymphadenopathy. He has small subcentimeter pulmonary nodules that are less concerning. In addition to that he did undergo blood work which was pretty nonrevealing as far as the etiology of the lymphadenopathy. I did speak to Cardiology. The per for further evaluation and testing of the lymphadenopathy before putting him through an intensive evaluation for the aortic stenosis and CAD. The patient understands that he is high risk for any procedure due to his underlying cardiovascular disease. Anesthesia did have a discussion with Cardiology the patient does have increased risk but at this point would need to have further evaluation for the lymphadenopathy in order to move for with a cardiac testing. The patient currently is agreeable to undergo endobronchial ultrasound bronchoscopy. Will plan to do that tomorrow February 09. 03/24/2022 the patient is here for a pulmo nary follow-up visit. Overall she is doing about the same. Complaining of dyspnea on exertion. We did review his bronchoscopy results. His cultures were negative. Cytology was negative. He did undergo endobronchial ultrasound bronchoscopy in the lymph nodes were consistent with normal lymphocytes. No evidence of any malignancy or lymphoma noted. The patient did have further cardiac evaluation. Appears that he needs both cardiac bypass surgery in on aortic valve replacement. He was going to have surgery but then postponed it now for few weeks from now. In the meantime he did undergo pulmonary function studies. It appears that he has a mild degree of restrictive lung disease. The patient is concerned about surgery. I did explain to him from a pulmonary standpoint the patient does not have significant risks for postoperative pulmonary complications. However, he may need some oxygen specially if the restriction gets worse due to and a the cardiothoracic surgery. The patient may proceed with anesthesia and cardiac surgery from a pulmonary standpoint. 09/29/2022 the patient is here for a pul onione follow-up visit. He did undergo his surgery. He is healing well from his cardiac surgery. However he has issues with his mentation. Sometimes he is more forgetful per his . He was given a prescription for Trelegy inhaler and he did pick it up. However, he has not used it. His does remind him but he also tends to forget. In the office we did review his last CT scan of the chest that he had recently. He does have some of day pattern in the pulmonary nodules in the lymphadenopathy appears to be stable if not better. With the mosaic pattern I did explain to the patient that using a bronchodilator will help improve his respiratory capacity. I did provide him with a nebulized treatment in the office in the patient did feel better. Therefore I will go ahead and order a nebulizer for him that he can use twice a day with the hope that he can improve his respiratory capacity. 04/06/2023 the patient is here for pulmon ar follow-up visit. The patient is doing very well from a respiratory status. Seems like after having cardiac surgery his respiratory issues have subsided significantly. He has not required his nebulizer no longer using any inhalers. I did recommend he use a short- acting beta agonist as needed. I did give her prescribe a prescription. Otherwise he can also use the nebulizer as needed. He does have some slight end expiratory wheezing still on examination. He is having issues with question seizures and also vertigo. That is really limiting his the ability to exercise and walk. Hopefully if his symptoms subsided can start exercising more regularly in building up his respiratory capacity. His last CT scan of the [facility] was back in August 2022 demonstrating pulmonary nodules. Will plan to repeat the CT scan sometime in the winter of 2023 to follow-up with the pulmonary nodules. 04/27/2023 The patient is here for a [facility] F/U visit. Having alot of GI complaints with N/V and diarrhea. He also had subjective fevers and chills, fatigue and weight loss. He was [place] [facility] and had aCT abdomen followed by a CT chest. I personally reviewed the CT chest from 09/09 and 03/2023. The appears to have a 5cm mass like density in the left infrahilar area associated with a post obstructive pneumonia and pleural effusion. He was told her likely had cancer. He did not want to pursue any agressive dianostic interventions. He is aggreeable to a PET scan. In the meantime, we will keep him a longer course of antibiotics. 05/26/2023 the patient is here for pulmona ry follow-up visit. Overall the patient has been feeling better. His GI symptoms have been subsiding as well. The subjective fevers and chills also have been subsiding. He completed 3 weeks of the Augmentin. The patient did undergo a PET scan. We personally reviewed. It appears that he does have some FDG activity around the periphery of the left infrahilar density on the left side. Within the density appears that it is without any significant metabolic activity. This suggests that is either necrotic tissue or Fluid. The fact that he responded to antibiotics suggesting likely a lung abscess. Also some FDG activity of the lymph nodes. He also has other extrapulmonary findings such as thickened bladder enlarged prostate. he is currently being evaluated for those issues by Urology. Based on the fact the patient clinically is feeling better will go ahead and we the CT scan 6 weeks after 3 additional weeks of antibiotics. If the area still continues to be abnormal then further diagnostic interventions are warranted. The patient is agreeable at this point. [facility] Medical History (Updated 04/27/23 @ 22:58 by Josemanuel Vasquez MD) Lung mass Diabetes Aortic stenosis CAD (coronary artery disease) Dyspnea Chronic bronchitis Pulmonary nodules Lymphadenopathy Surgical History History of renal stent Hx of cholecystectomy Hx of carpal tunnel repair Family History Father Heart attack Stroke Mother Heart attack Cancer COPD (chronic obstructive pulmonary disease) Social History Alcohol intake: current Alcohol intake frequency: holidays/special occasions only Patient Tobacco Use Status: Never used Tobacco Review of Systems Const Denies body aches, Denies chills, Denies fatigue, Denies fever(s), Reports poor appetite and Denies weight loss Eyes Denies exophthalmos ENT Denies change in voice Card Denies chest pain and Reports dyspnea on exertion Resp Reports cough, Reports dyspnea on exertion and Denies wheezing GI Reports as per HPI, Reports bloating, Denies hematochezia, Reports change in stool character, Reports constipation, Reports diarrhea, Reports loose stools and Denies vomiting Reports no additional complaints Musc Reports back pain, Reports myalgias and Reports arthralgias Skin/Breast Denies rash Neuro Reports no additional complaints, Denies Abnormal speech present and Reports memory loss Psych Reports no additional complaints and Reports memory loss Endo Reports no additional complaints and Denies fatigue Sea/Lymph Reports no additional complaints Aller/Immun Reports no additional complaints and Denies wheezing Physical Exam Vital Signs: Last Vital Signs Pulse 60 05/26/23 10:15 BP 124/60 05/26/23 10:15 Pulse Ox 100 05/26/23 10:15 Oxygen Delivery Method Room Air 05/26/23 10:15 BMI result Body Mass Index 29.0 Const General: alert Neck Neck: Yes normal visual inspection, Yes full ROM and Yes no lymphadenopathy Chest Chest palpation & inspection: normal inspection of the chest Resp Auscultation: clear to auscultation bilaterally and no wheezes Cardio Rate: regular rate Rhythm: regular rhythm Heart sounds: S1 normal heart sound present, S2 normal heart sound present and Murmur heart sound present GI Palpation (GI): Soft to palpation and nontender Auscultation: normal bowel sounds Skin General skin exam: rashes and/or lesions noted Neuro Speech: No Abnormal speech present Assessment & Plan Assessment & Plan (1) Lung mass: Code(s): R91.8 - Other nonspecific abnormal finding of lung field (2) Pulmonary nodules: Code(s): R91.8 - Other nonspecific abnormal finding of lung field (3) Lymphadenopathy: Code(s): R59.1 - Generalized enlarged lymph nodes (4) Chronic bronchitis: Code(s): J42 - Unspecified chronic bronchitis Qualifiers: Chronic bronchitis type: mixed simple and mucopurulent Qualified Code(s): J41.8 - Mixed simple and mucopurulent chronic bronchitis (5) Dyspnea: Comment: better Code(s): R06.00 - Dyspnea, unspecified Qualifiers: Dyspnea type: dyspnea on exertion Qualified Code(s): R06.00 - Dyspnea, unspecified (6) CAD (coronary artery disease): Code(s): I25.10 - Atherosclerotic heart disease of [place] coronary artery without angina pectoris Qualifiers: Coronary Disease-Associated Artery/Lesion type: unspecified vessel or lesion type [place] vs. transplanted heart: [place] heart Associated angina: without angina Qualified Code(s): I25.10 - Atherosclerotic heart disease of [place] coronary artery without angina pectoris Plan continue Augmentin for total of 6 weeks to treat a lung abscess continue probiotics repeat CT chest 6 weeks MIKE as needed Follow-up in 8-12 weeks Orders: Orders CT chest wo IV con 6 Weeks R91.8 - Other nonspecific abnormal finding of lung field Medications: Refilled amoxicillin-pot clavulanate 875-125 mg 1 tab PO BID 42 tabs 0RF 21 days Coding Level of Care Code Est Pt Level 4 (44675) Diagnoses Lung mass R91.8 Pulmonary nodules R91.8 Lymphadenopathy R59.1 Mixed simple and mucopurulent chronic bronchitis J41.8 Chronic bronchitis type: mixed simple and mucopurulent Dyspnea on exertion R06.00 Dyspnea type: dyspnea on exertion Coronary artery disease involving [place] heart without angina pectoris, unspecified vessel or lesion type I25.10 Coronary Disease-Associated Artery/Lesion type: unspecified vessel or lesion type [place] vs. transplanted heart: [place] heart Associated angina: without angina Time Spent (min) 18
== END 2023-05-26 10:37 | disposition home or self-care (01) ==
PROVIDERS: PCP Internal Medicine; Visit Provider Hospitalist
DX: R91.8 Other nonspecific abnormal finding of lung field (principal); R59.1 Generalized enlarged lymph nodes; J41.8 Mixed simple and mucopurulent chronic bronchitis; R06.00 Dyspnea, unspecified; I25.10 Atherosclerotic heart disease of native coronary artery without angina pectoris
CPT/HCPCS: 99214

== ENCOUNTER → 2023-05-26 09:40 | Outpatient (BNVA) | payer MEDICARE, SELFPAY | PROVIDERS: PCP Internal Medicine; Visit Provider Hospitalist | DX: R91.8 Other nonspecific abnormal finding of lung field (principal); R59.1 Generalized enlarged lymph nodes; R06.00 Dyspnea, unspecified; J41.8 Mixed simple and mucopurulent chronic bronchitis; I25.10 Atherosclerotic heart disease of native coronary artery without angina pectoris | CPT/HCPCS: 99212 ==

== ENCOUNTER 2023-07-27 08:54 | Outpatient (AMB) | payer MEDICARE, SELFPAY ==
--- NOTE | 2023-07-27 08:57 | MHC.OFFVIS ---
Intake Vital Signs 07/27/23 08:59 Height 5 ft 6 in Weight 181 lb BMI 29.2 BP 120/60 Blood Pressure Location Lt brachial Position Sitting Pulse 65 Pulse Source Pulse Oximeter Pulse Oximetry (%) 99 Oxygen Delivery Method Room Air Intake Visit Reasons: copd Nurse Extern Required: No Allergies fentanyl Allergy (Verified 07/27/23 09:01) Swelling erythromycin base Adverse Reaction (Severe, Verified 07/27/23 09:01) Rash HPI HPI Comments History of Present Illness Details The patient is a 73-year-old gentleman with a known history of CAD, aortic stenosis history of hemorrhagic strokes and now with worsening dyspnea on exertion. 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 He was exposed to multiple fumes and apparently the mask that he was provided was not sufficient. So therefore for about 20 years he was exposed to disease fumes and toxins. At some point, the patient was evaluated by Pulmonary back in early 1999 and he did undergo imaging studies at [facility] where he was told that he likely had lung cancer. Ultimately he did follow-up with Pulmonary that point which ruled out the possibility of lung cancer. He did indeed have underlying pulmonary nodules at that time. More recently the patient has been evaluated for his cardiac issues. He did undergo a recent cardiac CT scan a [facility] which was personally by me. This CT scan that was done on 12/26/2021 demonstrated new once id mediastinal or hilar lymphadenopathy along with evidence of chronic bronchitis and significant air trapping. The imaging study is very limited in view the fact that it is primarily focused on the cardiac pictures and we do not have full will imaging of the lung windows. Therefore really hard to know exactly if the nodular densities have changed in size and there is any evidence of airspace disease elsewhere. But, based on what I see I do not see any evidence of consolidations to be consistent with pneumonia. The patient has not had any recent pulmonary function studies. In regards his multiple ailments he did have a rheumatology evaluation many years ago which evaluated him for different connective tissue conditions including alkalosising spondylitis along with other rheumatological issues. He was told that his workup was negative for any these findings. In view of the significant lymphadenopathy and the underlying pulmonary nodules it is worthwhile looking into this issue again. His cardiac CT scan also demonstrated significant cardiac disease. 02/08/2022 the patient is here for pulmonary follow-up visit. He continues to have shortness of breath. Recently underwent an MRI of the brain demonstrating no acute disease. However he does have chronic changes. he did start the inhaler and his respiratory status has improved. The shortness of breath has been improving which is reassuring. Patient also underwent a repeat CT scan demonstrating persistent lymphadenopathy. He has small subcentimeter pulmonary nodules that are less concerning. In addition to that he did undergo blood work which was pretty nonrevealing as far as the etiology of the lymphadenopathy. I did speak to Cardiology. The per for further evaluation and testing of the lymphadenopathy before putting him through an intensive evaluation for the aortic stenosis and CAD. The patient understands that he is high risk for any procedure due to his underlying cardiovascular disease. Anesthesia did have a discussion with Cardiology the patient does have increased risk but at this point would need to have further evaluation for the lymphadenopathy in order to move for with a cardiac testing. The patient currently is agreeable to undergo endobronchial ultrasound bronchoscopy. Will plan to do that tomorrow February 09. 03/24/2022 the patient is here for a pulmonary follow-up visit. Overall she is doing about the same. Complaining of dyspnea on exertion. We did review his bronchoscopy results. His cultures were negative. Cytology was negative. He did undergo endobronchial ultrasound bronchoscopy in the lymph nodes were consistent with normal lymphocytes. No evidence of any malignancy or lymphoma noted. The patient did have further cardiac evaluation. Appears that he needs both cardiac bypass surgery in on aortic valve replacement. He was going to have surgery but then postponed it now for few weeks from now. In the meantime he did undergo pulmonary function studies. It appears that he has a mild degree of restrictive lung disease. The patient is concerned about surgery. I did explain to him from a pulmonary standpoint the patient does not have significant risks for postoperative pulmonary complications. However, he may need some oxygen specially if the restriction gets worse due to and a the cardiothoracic surgery. The patient may proceed with anesthesia and cardiac surgery from a pulmonary standpoint. 09/29/2022 the patient is here for a pulmonary follow-up visit. He did undergo his surgery. He is healing well from his cardiac surgery. However he has issues with his mentation. Sometimes he is more forgetful per his . He was given a prescription for Trelegy inhaler and he did pick it up. However, he has not used it. His does remind him but he also tends to forget. In the office we did review his last CT scan of the chest that he had recently. He does have some of day pattern in the pulmonary nodules in the lymphadenopathy appears to be stable if not better. With the mosaic pattern I did explain to the patient that using a bronchodilator will help improve his respiratory capacity. I did provide him with a nebulized treatment in the office in the patient did feel better. Therefore I will go ahead and order a nebulizer for him that he can use twice a day with the hope that he can improve his respiratory capacity. 04/06/2023 the patient is here for pulmonary follow-up visit. The patient is doing very well from a respiratory status. Seems like after having cardiac surgery his respiratory issues have subsided significantly. He has not required his nebulizer no longer using any inhalers. I did recommend he use a short-acting beta agonist as needed. I did give her prescribe a prescription. Otherwise he can also use the nebulizer as needed. He does have some slight end expiratory wheezing still on examination. He is having issues with question seizures and also vertigo. That is really limiting his the ability to exercise and walk. Hopefully if his symptoms subsided can start exercising more regularly in building up his respiratory capacity. His last CT scan of the chest was back in August 2022 demonstrating pulmonary nodules. Will plan to repeat the CT scan sometime in the winter of 2023 to follow-up with the pulmonary nodules. 04/27/2023 The patient is here for a hospital F/U visit. Having alot of GI complaints with N/V and diarrhea. He also had subjective fevers and chills, fatigue and weight loss. [place] [facility] [place] abdomen followed by a CT chest. I personally reviewed the CT chest from 09/09 and 03/2023. The appears to have a 5cm mass like density in the left infrahilar area associated with a post obstructive pneumonia and pleural effusion. He was told her likely had cancer. He did not want to pursue any agressive dianostic interventions. He is aggreeable to a PET scan. In the meantime, we will keep him a longer course of antibiotics. 05/26/2023 the patient is here for pulmonary follow-up visit. Overall the patient has been feeling better. His GI symptoms have been subsiding as well. The subjective fevers and chills also have been subsiding. He completed 3 weeks of the Augmentin. The patient did undergo a PET scan. We personally reviewed. It appears that he does have some FDG activity around the periphery of the left infrahilar density on the left side. Within the density appears that it is without any significant metabolic activity. This suggests that is either necrotic tissue or Fluid. The fact that he responded to antibiotics suggesting likely a lung abscess. Also some FDG activity of the lymph nodes. He also has other extrapulmonary findings such as thickened bladder enlarged prostate. he is currently being evaluated for those issues by Urology. Based on the fact the patient clinically is feeling better will go ahead and we the CT scan 6 weeks after 3 additional weeks of antibiotics. If the area still continues to be abnormal then further diagnostic interventions are warranted. The patient is agreeable at this point. 07/27/2023 the patient is here for a pulmonary follow-up visit. Overall the patient is doing better. He has actually gained weight. Denies any significant cough or chest congestion. He did recently have a CT scan of the chest that we personally reviewed demonstrating interval resolution of the large left infrahilar mass suggesting an abscess. It appears to be completely treated after 2 courses of Augmentin. The patient does have poor dentition. Very suspicious for a polymicrobial micro aspiration resulting in the infection. Also to note that he had a seizure before this happened so therefore likely related to that episode as well. In the meantime will treating with chlorhexidine because of his poor dentition to minimize micro bacterial infections in the near future. He also needs to follow-up with a dentist regarding his bad molar disease. Patient continues to have some pulmonary nodules on his CT scan and will need further follow-up. In the meantime will start him on chlorhexidine and will request a barium swallow to assess for any reflux related disease. FORMERLY [facility], [facility] Medical History (Updated 07/27/23 @ 09:12 by Josemanuel Vasquez MD) Lung mass Diabetes Aortic stenosis CAD (coronary artery disease) Dyspnea Chronic bronchitis Pulmonary nodules Lymphadenopathy Surgical History History of renal stent Hx of cholecystectomy Hx of carpal tunnel repair Family History Father Heart attack Stroke Mother Heart attack Cancer COPD (chronic obstructive pulmonary disease) Social History Alcohol intake: current Alcohol intake frequency: holidays/special occasions only Patient Tobacco Use Status: Never used Tobacco Review of Systems Const Denies body aches, Reports chills, Denies fatigue, Denies fever(s) and Reports weight gain Eyes Denies exophthalmos ENT Denies change in voice Card Denies chest pain and Reports dyspnea on exertion Resp Reports cough, Reports dyspnea on exertion and Denies wheezing GI Reports as per HPI, Reports bloating, Denies hematochezia, Reports change in stool character, Reports constipation, Reports diarrhea, Reports loose stools and Denies vomiting Reports no additional complaints Musc Reports back pain, Reports myalgias and Reports arthralgias Skin/Breast Denies rash Neuro Reports no additional complaints, Denies Abnormal speech present and Reports memory loss Psych Reports no additional complaints and Reports memory loss Endo Reports no additional complaints and Denies fatigue Sea/Lymph Reports no additional complaints Aller/Immun Reports no additional complaints and Denies wheezing Physical Exam Vital Signs: Last Vital Signs Pulse 65 07/27/23 08:59 BP 120/60 07/27/23 08:59 Pulse Ox 99 07/27/23 08:59 Oxygen Delivery Method Room Air 07/27/23 08:59 BMI result Body Mass Index 29.2 Const General: alert Neck Neck: Yes normal visual inspection, Yes full ROM and Yes no lymphadenopathy Chest Chest palpation & inspection: normal inspection of the chest Resp Auscultation: clear to auscultation bilaterally and no wheezes Cardio Rate: regular rate Rhythm: regular rhythm Heart sounds: S1 normal heart sound present, S2 normal heart sound present and Murmur heart sound present GI Palpation (GI): Soft to palpation and nontender Auscultation: normal bowel sounds Skin General skin exam: rashes and/or lesions noted Neuro Speech: No Abnormal speech present Assessment & Plan Assessment & Plan (1) Lung mass: Comment: abscess nearly completely gome Code(s): R91.8 - Other nonspecific abnormal finding of lung field (2) Pulmonary nodules: Code(s): R91.8 - Other nonspecific abnormal finding of lung field (3) Lymphadenopathy: Code(s): R59.1 - Generalized enlarged lymph nodes (4) Chronic bronchitis: Code(s): J42 - Unspecified chronic bronchitis Qualifiers: Chronic bronchitis type: mixed simple and mucopurulent Qualified Code(s): J41.8 - Mixed simple and mucopurulent chronic bronchitis (5) Dyspnea: Comment: better Code(s): R06.00 - Dyspnea, unspecified Qualifiers: Dyspnea type: dyspnea on exertion Qualified Code(s): R06.00 - Dyspnea, unspecified (6) CAD (coronary artery disease): Code(s): I25.10 - Atherosclerotic heart disease of [place] coronary artery without angina pectoris Qualifiers: Associated angina: without angina Coronary Disease-Associated Artery/Lesion type: unspecified vessel or lesion type [place] vs. transplanted heart: [place] heart Qualified Code(s): I25.10 - Atherosclerotic heart disease of [place] coronary artery without angina pectoris Plan Chlorhexadine MW x 14 days Barium swallow continue probiotics MIKE as needed Follow-up in 8-12 weeks Orders: Orders FL barium swallow Today K21.9 - Gastro-esophageal reflux disease without esophagitis, R91.8 - Other nonspecific abnormal finding of lung field Medications: New chlorhexidine gluconate 0.12% 15 mL buccal BID 420 mL 0RF 14 days Coding Level of Care Code Est Pt Level 4 (63187) Diagnoses Lung mass R91.8 Pulmonary nodules R91.8 Lymphadenopathy R59.1 Mixed simple and mucopurulent chronic bronchitis J41.8 Chronic bronchitis type: mixed simple and mucopurulent Dyspnea on exertion R06.00 Dyspnea type: dyspnea on exertion Coronary artery disease involving [place] heart without angina pectoris, unspecified vessel or lesion type I25.10 Associated angina: without angina Coronary Disease-Associated Artery/Lesion type: unspecified vessel or lesion type [place] vs. transplanted heart: [place] heart Time Spent (min) 17
[2023-07-27 08:59] VITALS: BP 120/60; PULSE 65; O2SAT 99; BMI 29.2
== END 2023-07-27 09:24 | disposition home or self-care (01) ==
PROVIDERS: PCP Internal Medicine; Visit Provider Hospitalist
DX: R91.8 Other nonspecific abnormal finding of lung field (principal); R59.1 Generalized enlarged lymph nodes; J41.8 Mixed simple and mucopurulent chronic bronchitis; R06.00 Dyspnea, unspecified; I25.10 Atherosclerotic heart disease of native coronary artery without angina pectoris
CPT/HCPCS: 99214

== ENCOUNTER → 2023-07-27 08:54 | Outpatient (BNVA) | payer MEDICARE, SELFPAY | PROVIDERS: PCP Internal Medicine; Visit Provider Hospitalist | DX: R91.8 Other nonspecific abnormal finding of lung field (principal); R59.1 Generalized enlarged lymph nodes; J41.8 Mixed simple and mucopurulent chronic bronchitis; R06.00 Dyspnea, unspecified; I25.10 Atherosclerotic heart disease of native coronary artery without angina pectoris | CPT/HCPCS: 99212 ==

== ENCOUNTER 2023-10-17 09:54 | Outpatient (REF) | payer MEDICARE, SELFPAY ==
--- NOTE | ~2023-10-17 | FL_ITS ---
EXAMINATION: XR FLUOROSCOPY UPPER GI WITH AIR CLINICAL INFORMATION: Gastroesophageal reflux without esophagitis. COMPARISON: None TECHNIQUE: Fluoroscopic air contrast upper GI examination was performed utilizing standard techniques with thin and thick barium and effervescent granules. Numerous spot images were obtained. FINDINGS: Surgical clips are present in the right upper quadrant, consistent with prior cholecystectomy. Median sternotomy wires are present. Aortic valve prosthesis. Heavy coronary calcifications. Dual and single contrast images of the esophagus demonstrate normal caliber, contour, and mucosal pattern. No evidence of stricture, mass, or ulcerations identified. Esophageal peristalsis is mildly disorganized. There is moderate narrowing at the GE junction, bird beak type appearance, likely representing achalasia. A small hiatal hernia is present. No significant gastroesophageal reflux was seen during the course of the examination and on reflux views. Dual contrast and single contrast images of the stomach demonstrated normal contour and mucosal pattern without evidence of mass, ulceration, or other abnormality. Contrast freely passed into the gastric antrum and duodenal bulb without delay. Single and air-contrast images of the duodenal bulb demonstrate no abnormality. The duodenal sweep demonstrates mild fold thickening diffusely. The imaged proximal jejunum also demonstrate suspected mild fold thickening. FLUOROSCOPY TIME: 3 minutes 40 seconds Number of Spot Images: 7 Number of Cine: 8 DOSE AREA PRODUCT: 2428 uGy-m2 (microgray-meter squared) FL/FL barium swallow IMPRESSION: 1. Mildly disorganized esophageal peristalsis. 2. There is moderate narrowing of the GE junction, likely representing achalasia. 3. Small type I hiatal hernia 4. Status post median sternotomy, aortic valve prosthesis in place. 5. Mild fold thickening suspected involving the duodenal sweep and proximal jejunum. Findings could indicate proximal enteritis versus malabsorption state. This procedure was performed by Xavier Sorensen PA-C, and supervised by Dr. Raines
== END 2023-10-17 09:55 | disposition home or self-care (01) ==
LOC: HO.XRAY 09:54
PROVIDERS: PCP Internal Medicine; Visit Provider Hospitalist
DX: K21.9 Gastro-esophageal reflux disease without esophagitis (principal); R91.8 Other nonspecific abnormal finding of lung field
CPT/HCPCS: 74220

== ENCOUNTER → 2023-10-17 09:56 | Outpatient (BNV) | payer MEDICARE, SELFPAY | PROVIDERS: PCP Internal Medicine; Visit Provider Radiology Diagnostic Radiology | DX: K21.9 Gastro-esophageal reflux disease without esophagitis (principal) | CPT/HCPCS: 74221 ==

== ENCOUNTER 2023-10-24 09:45 | Outpatient (REF) | payer MEDICARE, SELFPAY ==
--- NOTE | ~2023-10-24 | CT_ITS ---
EXAMINATION: CT CHEST WITHOUT CONTRAST CLINICAL INFORMATION: Pulmonary nodules. COMPARISON: 09/01/2022 and 02/04/2022 TECHNIQUE: Multidetector volumetric CT imaging of the chest was done. Axial MIP volume rendering provided. Sagittal and coronal reformatted images were obtained. This CT examination was performed using dose optimization techniques as appropriate, variously including the following: *Automated exposure control *Adjustment of mA and/or kV according to patient size (this includes techniques or standardized protocols for targeted exams where dose is matched to indication/reason for exam; i.e. extremities or head) *Use of iterative reconstruction technique DLP: 173 mGy-cm FINDINGS: LUNGS: Mild centrilobular emphysema. Subpleural reticular changes bilaterally with interstitial thickening. 3 mm nodule right upper lobe on image 206. 5 mm subpleural nodule right lower lobe on image 432. 6 mm ovoid nodule right lower lobe on image 498. 4 mm nodule medial left upper lobe on image 150. No new or enlarging pulmonary nodules. Central airways are patent. MEDIASTINUM: No bulky axillary, hilar or mediastinal lymphadenopathy. Great vessels are of normal caliber. Heart size is stable. No pericardial effusion. Aortic valve replacement. CORONARY ARTERY CALCIFICATION: Severe. PLEURA: There is no pleural effusion. No pleural mass or thickening. UPPER ABDOMEN: No adrenal mass. Status post cholecystectomy. Right renal hypodensities not completely characterized. OSSEOUS STRUCTURES: Prior median sternotomy. CT/CT chest wo IV con IMPRESSION: Stable examination. No significant interval change in bilateral pulmonary nodules measuring up to 5 mm. These nodules have been stable relative to 02/04/2022. Stable pattern of chronic interstitial lung disease.
== END 2023-10-24 09:46 | disposition home or self-care (01) ==
LOC: HO.CT 09:45
PROVIDERS: PCP Internal Medicine; Visit Provider Hospitalist
DX: R91.8 Other nonspecific abnormal finding of lung field (principal); Z90.49 Acquired absence of other specified parts of digestive tract
CPT/HCPCS: 71250

== ENCOUNTER 2023-11-02 09:19 | Outpatient (AMB) | payer MEDICARE, SELFPAY ==
--- NOTE | 2023-11-02 09:24 | MHC.OFFVIS ---
Intake Vital Signs 11/02/23 09:26 Height 5 ft 6 in Weight 181 lb BMI 29.2 Pulse 62 Pulse Source Pulse Oximeter Pulse Oximetry (%) 99 Oxygen Delivery Method Room Air Intake Visit Reasons: copd Scaffolder Required: No Allergies fentanyl Allergy (Verified 11/02/23 09:27) Swelling erythromycin base Adverse Reaction (Severe, Verified 11/02/23 09:27) Rash HPI HPI Comments History of Present Illness Details The patient is a 73-year-old gentleman with a known history of CAD, aortic stenosis history of hemorrhagic strokes and now with worsening dyspnea on exertion. 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 He was exposed to multiple fumes and apparently the mask that he was provided was not sufficient. So therefore for about 20 years he was exposed to disease fumes and toxins. At some point, the patient was evaluated by Pulmonary back in early 1999 and he did undergo imaging studies at [facility] where he was told that he likely had lung cancer. Ultimately he did follow-up with Pulmonary that point which ruled out the possibility of lung cancer. He did indeed have underlying pulmonary nodules at that time. More recently the patient has been evaluated for his cardiac issues. He did undergo a recent cardiac CT scan a [facility] which was personally by me. This CT scan that was done on 12/26/2021 demonstrated new once id mediastinal or hilar lymphadenopathy along with evidence of chronic bronchitis and significant air trapping. The imaging study is very limited in view the fact that it is primarily focused on the cardiac pictures and we do not have full will imaging of the lung windows. Therefore really hard to know exactly if the nodular densities have changed in size and there is any evidence of airspace disease elsewhere. But, based on what I see I do not see any evidence of consolidations to be consistent with pneumonia. The patient has not had any recent pulmonary function studies. In regards his multiple ailments he did have a rheumatology evaluation many years ago which evaluated him for different connective tissue conditions including alkalosising spondylitis along with other rheumatological issues. He was told that his workup was negative for any these findings. In view of the significant lymphadenopathy and the underlying pulmonary nodules it is worthwhile looking into this issue again. His cardiac CT scan also demonstrated significant cardiac disease. 02/08/2022 the patient is here for pulmonary follow-up visit. He continues to have shortness of breath. Recently underwent an MRI of the brain demonstrating no acute disease. However he does have chronic changes. he did start the inhaler and his respiratory status has improved. The shortness of breath has been improving which is reassuring. Patient also underwent a repeat CT scan demonstrating persistent lymphadenopathy. He has small subcentimeter pulmonary nodules that are less concerning. In addition to that he did undergo blood work which was pretty nonrevealing as far as the etiology of the lymphadenopathy. I did speak to Cardiology. The per for further evaluation and testing of the lymphadenopathy before putting him through an intensive evaluation for the aortic stenosis and CAD. The patient understands that he is high risk for any procedure due to his underlying cardiovascular disease. Anesthesia did have a discussion with Cardiology the patient does have increased risk but at this point would need to have further evaluation for the lymphadenopathy in order to move for with a cardiac testing. The patient currently is agreeable to undergo endobronchial ultrasound bronchoscopy. Will plan to do that tomorrow February 09. 03/24/2022 the patient is here for a pulmonary follow-up visit. Overall she is doing about the same. Complaining of dyspnea on exertion. We did review his bronchoscopy results. His cultures were negative. Cytology was negative. He did undergo endobronchial ultrasound bronchoscopy in the lymph nodes were consistent with normal lymphocytes. No evidence of any malignancy or lymphoma noted. The patient did have further cardiac evaluation. Appears that he needs both cardiac bypass surgery in on aortic valve replacement. He was going to have surgery but then postponed it now for few weeks from now. In the meantime he did undergo pulmonary function studies. It appears that he has a mild degree of restrictive lung disease. The patient is concerned about surgery. I did explain to him from a pulmonary standpoint the patient does not have significant risks for postoperative pulmonary complications. However, he may need some oxygen specially if the restriction gets worse due to and a the cardiothoracic surgery. The patient may proceed with anesthesia and cardiac surgery from a pulmonary standpoint. 09/29/2022 the patient is here for a pulmonary follow-up visit. He did undergo his surgery. He is healing well from his cardiac surgery. However he has issues with his mentation. Sometimes he is more forgetful per his . He was given a prescription for Trelegy inhaler and he did pick it up. However, he has not used it. His does remind him but he also tends to forget. In the office we did review his last CT scan of the chest that he had recently. He does have some of day pattern in the pulmonary nodules in the lymphadenopathy appears to be stable if not better. With the mosaic pattern I did explain to the patient that using a bronchodilator will help improve his respiratory capacity. I did provide him with a nebulized treatment in the office in the patient did feel better. Therefore I will go ahead and order a nebulizer for him that he can use twice a day with the hope that he can improve his respiratory capacity. 04/06/2023 the patient is here for pulmonary follow-up visit. The patient is doing very well from a respiratory status. Seems like after having cardiac surgery his respiratory issues have subsided significantly. He has not required his nebulizer no longer using any inhalers. I did recommend he use a short-acting beta agonist as needed. I did give her prescribe a prescription. Otherwise he can also use the nebulizer as needed. He does have some slight end expiratory wheezing still on examination. He is having issues with question seizures and also vertigo. That is really limiting his the ability to exercise and walk. Hopefully if his symptoms subsided can start exercising more regularly in building up his respiratory capacity. His last CT scan of the chest was back in August 2022 demonstrating pulmonary nodules. Will plan to repeat the CT scan sometime in the winter of 2023 to follow-up with the pulmonary nodules. 04/27/2023 The patient is here for a hospital F/U visit. Having alot of GI complaints with N/V and diarrhea. He also had subjective fevers and chills, fatigue and weight loss. He was admitted to [facility] and had aCT abdomen followed by a CT chest. I personally reviewed the CT chest from 09/09 and 03/2023. The appears to have a 5cm mass like density in the left infrahilar area associated with a post obstructive pneumonia and pleural effusion. He was told her likely had cancer. He did not want to pursue any agressive dianostic interventions. He is aggreeable to a PET scan. In the meantime, we will keep him a longer course of antibiotics. 05/26/2023 the patient is here for pulmonary follow-up visit. Overall the patient has been feeling better. His GI symptoms have been subsiding as well. The subjective fevers and chills also have been subsiding. He completed 3 weeks of the Augmentin. The patient did undergo a PET scan. We personally reviewed. It appears that he does have some FDG activity around the periphery of the left infrahilar density on the left side. Within the density appears that it is without any significant metabolic activity. This suggests that is either necrotic tissue or Fluid. The fact that he responded to antibiotics suggesting likely a lung abscess. Also some FDG activity of the lymph nodes. He also has other extrapulmonary findings such as thickened bladder enlarged prostate. he is currently being evaluated for those issues by Urology. Based on the fact the patient clinically is feeling better will go ahead and we the CT scan 6 weeks after 3 additional weeks of antibiotics. If the area still continues to be abnormal then further diagnostic interventions are warranted. The patient is agreeable at this point. 07/27/2023 the patient is here for a pulmonary follow-up visit. Overall the patient is doing better. He has actually gained weight. Denies any significant cough or chest congestion. He did recently have a CT scan of the chest that we personally reviewed demonstrating interval resolution of the large left infrahilar mass suggesting an abscess. It appears to be completely treated after 2 courses of Augmentin. The patient does have poor dentition. Very suspicious for a polymicrobial micro aspiration resulting in the infection. Also to note that he had a seizure before this happened so therefore likely related to that episode as well. In the meantime will treating with chlorhexidine because of his poor dentition to minimize micro bacterial infections in the near future. He also needs to follow-up with a dentist regarding his bad molar disease. Patient continues to have some pulmonary nodules on his CT scan and will need further follow-up. In the meantime will start him on chlorhexidine and will request a barium swallow to assess for any reflux related disease. Still 11/02/2023 the patient is here for a pulmonary follow-up visit. The patient overall has been doing okay although recently started developing a cold like symptoms in his started developing increasing cough. Positive sick contacts. The patient denies any fevers or chills. He did have a CT scan of the chest personally by me in appears that the abscess has cleared and he is left with some minimal scarring in that area. He also has pulmonary nodules that are being followed. Will have to continue to follow on a yearly basis. Still having difficulty swallowing. Barium is abnormal. Does have an evaluation with GI in 1-2 weeks. [facility] Medical History (Updated 11/02/23 @ 18:20 by Josemanuel Vasquez MD) Dysphagia Lung mass Diabetes Aortic stenosis CAD (coronary artery disease) Dyspnea Chronic bronchitis Pulmonary nodules Lymphadenopathy Surgical History History of renal stent Hx of cholecystectomy Hx of carpal tunnel repair Family History Father Heart attack Stroke Mother Heart attack Cancer COPD (chronic obstructive pulmonary disease) Social History Alcohol intake: current Alcohol intake frequency: holidays/special occasions only Patient Tobacco Use Status: Never used Tobacco Review of Systems Const Denies body aches, Denies fatigue, Denies fever(s) and Reports weight gain Eyes Denies exophthalmos ENT Denies change in voice Card Denies chest pain and Reports dyspnea on exertion Resp Reports chest congestion, Reports cough, Reports dyspnea on exertion and Denies wheezing GI Reports as per HPI, Reports bloating, Denies hematochezia, Reports change in stool character, Reports constipation, Reports diarrhea, Reports loose stools and Denies vomiting Reports no additional complaints Musc Reports back pain, Reports myalgias and Reports arthralgias Skin/Breast Denies rash Neuro Reports no additional complaints, Denies Abnormal speech present and Reports memory loss Psych Reports no additional complaints and Reports memory loss Endo Reports no additional complaints and Denies fatigue Sea/Lymph Reports no additional complaints Aller/Immun Reports no additional complaints and Denies wheezing Physical Exam Vital Signs: Last Vital Signs Pulse 62 11/02/23 09:26 Pulse Ox 99 11/02/23 09:26 Oxygen Delivery Method Room Air 11/02/23 09:26 BMI result Body Mass Index 29.2 Neuro Speech: No Abnormal speech present Results Reviewed Results Reviewed: [address] [address] [address] Scan Report Signed Patient: Jorge Cadet MR#: [id number] : 1950 Acct:[id number] Age/Sex: 73 / M ADM Date: 10/24/23 Loc: HO.CT Attending Dr: Josemanuel Vasquez MD Ordering Physician: Josemanuel Vasquez MD Date of Service: 10/24/23 Procedure(s): CT chest wo IV con Accession Number(s): [id number] cc: Yordy Abbott; Josemanuel Vasquez MD~ EXAMINATION: CT CHEST WITHOUT CONTRAST CLINICAL INFORMATION: Pulmonary nodules. COMPARISON: 09/01/2022 and 02/04/2022 TECHNIQUE: Multidetector volumetric CT imaging of the chest was done. Axial MIP volume rendering provided. Sagittal and coronal reformatted images were obtained. This CT examination was performed using dose optimization techniques as appropriate, variously including the following: *Automated exposure control *Adjustment of mA and/or kV according to patient size (this includes techniques or standardized protocols for targeted exams where dose is matched to indication/reason for exam; i.e. extremities or head) *Use of iterative reconstruction technique DLP: 173 mGy-cm FINDINGS: LUNGS: Mild centrilobular emphysema. Subpleural reticular changes bilaterally with interstitial thickening. 3 mm nodule right upper lobe on image 206. 5 mm subpleural nodule right lower lobe on image 432. 6 mm ovoid nodule right lower lobe on image 498. 4 mm nodule medial left upper lobe on image 150. No new or enlarging pulmonary nodules. Central airways are patent. MEDIASTINUM: No bulky axillary, hilar or mediastinal lymphadenopathy. Great vessels are of normal caliber. Heart size is stable. No pericardial effusion. Aortic valve replacement. CORONARY ARTERY CALCIFICATION: Severe. PLEURA: There is no pleural effusion. No pleural mass or thickening. UPPER ABDOMEN: No adrenal mass. Status post cholecystectomy. Right renal hypodensities not completely characterized. OSSEOUS STRUCTURES: Prior median sternotomy. CT/CT chest wo IV con IMPRESSION: Stable examination. No significant interval change in bilateral pulmonary nodules measuring up to 5 mm. These nodules have been stable relative to 02/04/2022. Stable pattern of chronic interstitial lung disease. Dictated By: Ling Patel MD Signed By: <Electronically signed by Ling Patel MD in OV> 10/27/23 1536 DD/ 1036 TD/TT: Java Programmer: [address] [id number] Fluoroscopy Report Signed Patient: Jorge Cadet MR#: [id number] : 1950 Acct:[id number] Age/Sex: 73 / M ADM Date: 10/17/23 Loc: HO.VIDHYA Attending Dr: Josemanuel Vasquez MD Ordering Physician: Josemanuel Vasquez MD Date of Service: 10/17/23 Procedure(s): FL barium swallow Accession Number(s): [id number] cc: Yordy Abbott; Josemanuel Vasquez MD~ EXAMINATION: XR FLUOROSCOPY UPPER GI WITH AIR CLINICAL INFORMATION: Gastroesophageal reflux without esophagitis. COMPARISON: None TECHNIQUE: Fluoroscopic air contrast upper GI examination was performed utilizing standard techniques with thin and thick barium and effervescent granules. Numerous spot images were obtained. FINDINGS: Surgical clips are present in the right upper quadrant, consistent with prior cholecystectomy. Median sternotomy wires are present. Aortic valve prosthesis. Heavy coronary calcifications. Dual and single contrast images of the esophagus demonstrate normal caliber, contour, and mucosal pattern. No evidence of stricture, mass, or ulcerations identified. Esophageal peristalsis is mildly disorganized. There is moderate narrowing at the GE junction, bird beak type appearance, likely representing achalasia. A small hiatal hernia is present. No significant gastroesophageal reflux was seen during the course of the examination and on reflux views. Dual contrast and single contrast images of the stomach demonstrated normal contour and mucosal pattern without evidence of mass, ulceration, or other abnormality. Contrast freely passed into the gastric antrum and duodenal bulb without delay. Single and air-contrast images of the duodenal bulb demonstrate no abnormality. The duodenal sweep demonstrates mild fold thickening diffusely. The imaged proximal jejunum also demonstrate suspected mild fold thickening. FLUOROSCOPY TIME: 3 minutes 40 seconds Number of Spot Images: 7 Number of Cine: 8 DOSE AREA PRODUCT: 2428 uGy-m2 (microgray-meter squared) FL/FL barium swallow IMPRESSION: 1. Mildly disorganized esophageal peristalsis. 2. There is moderate narrowing of the GE junction, likely representing achalasia. 3. Small type I hiatal hernia 4. Status post median sternotomy, aortic valve prosthesis in place. 5. Mild fold thickening suspected involving the duodenal sweep and proximal jejunum. Findings could indicate proximal enteritis versus malabsorption state. This procedure was performed by Xavier Sorensen PA-C, and supervised by Dr. Raines Dictated By: Alcides Raines MD Signed By: <Electronically signed by Alcides Raines MD in OV> 10/17/23 1603 DD/ 1045 TD/TT: Java Programmer: Assessment & Plan Assessment & Plan (1) Lung mass: Comment: abscess nearly completely gome Code(s): R91.8 - Other nonspecific abnormal finding of lung field Plan: Now resolved, abscess s/p 6 weeks of Augmentin (2) Pulmonary nodules: Code(s): R91.8 - Other nonspecific abnormal finding of lung field (3) Lymphadenopathy: Code(s): R59.1 - Generalized enlarged lymph nodes (4) Chronic bronchitis: Code(s): J42 - Unspecified chronic bronchitis Qualifiers: Chronic bronchitis type: mixed simple and mucopurulent Qualified Code(s): J41.8 - Mixed simple and mucopurulent chronic bronchitis (5) Dyspnea: Comment: better Code(s): R06.00 - Dyspnea, unspecified Qualifiers: Dyspnea type: dyspnea on exertion Qualified Code(s): R06.00 - Dyspnea, unspecified (6) CAD (coronary artery disease): Code(s): I25.10 - Atherosclerotic heart disease of [place] coronary artery without angina pectoris Qualifiers: Coronary Disease-Associated Artery/Lesion type: unspecified vessel or lesion type [place] vs. transplanted heart: [place] heart Associated angina: without angina Qualified Code(s): I25.10 - Atherosclerotic heart disease of [place] coronary artery without angina pectoris (7) Dysphagia: Code(s): R13.10 - Dysphagia, unspecified Qualifiers: Dysphagia type: unspecified Qualified Code(s): R13.10 - Dysphagia, unspecified Plan start Zpack medrol pack continue probiotics MIKE as needed GI evaluation for the abnormal BA swallow Repeat CT chest 09/2024 Follow-up in 4-6 months Orders: Orders CT chest wo IV con 10/01/24 R91.8 - Other nonspecific abnormal finding of lung field Medications: New azithromycin 500 mg PO DAILY 5 tabs 0RF 5 days methylprednisolone (Medrol (Sea)) PO PER PKG DIR 21 ea 0RF 6 days Coding Level of Care Code Est Pt Level 4 (91869) Diagnoses Lung mass R91.8 Pulmonary nodules R91.8 Lymphadenopathy R59.1 Mixed simple and mucopurulent chronic bronchitis J41.8 Chronic bronchitis type: mixed simple and mucopurulent Dyspnea on exertion R06.00 Dyspnea type: dyspnea on exertion Coronary artery disease involving [place] heart without angina pectoris, unspecified vessel or lesion type I25.10 Coronary Disease-Associated Artery/Lesion type: unspecified vessel or lesion type [place] vs. transplanted heart: [place] heart Associated angina: without angina Dysphagia, unspecified type R13.10 Dysphagia type: unspecified Time Spent (min) 18
[2023-11-02 09:26] VITALS: PULSE 62; O2SAT 99; BMI 29.2
== END 2023-11-02 09:56 | disposition home or self-care (01) ==
PROVIDERS: PCP Internal Medicine; Visit Provider Hospitalist
DX: R91.8 Other nonspecific abnormal finding of lung field (principal); R59.1 Generalized enlarged lymph nodes; J41.8 Mixed simple and mucopurulent chronic bronchitis; R06.00 Dyspnea, unspecified; I25.10 Atherosclerotic heart disease of native coronary artery without angina pectoris; R13.10 Dysphagia, unspecified
CPT/HCPCS: 99214

== ENCOUNTER → 2023-11-02 09:19 | Outpatient (BNVA) | payer MEDICARE, SELFPAY | PROVIDERS: PCP Internal Medicine; Visit Provider Hospitalist | DX: R91.8 Other nonspecific abnormal finding of lung field (principal); R59.1 Generalized enlarged lymph nodes; J41.8 Mixed simple and mucopurulent chronic bronchitis; R06.00 Dyspnea, unspecified; I25.10 Atherosclerotic heart disease of native coronary artery without angina pectoris; R13.10 Dysphagia, unspecified | CPT/HCPCS: 99212 ==

== ENCOUNTER 2024-05-09 09:15 | Outpatient (AMB) | payer MEDICARE, SELFPAY ==
[2024-05-09 09:23] VITALS: BP 128/70; PULSE 55; O2SAT 97; BMI 29.0
--- NOTE | 2024-05-09 09:23 | A.OFFVIS_ITS ---
Vital Signs 05/09/24 09:23 Height 5 ft 6 in Weight 180 lb BMI 29.0 BP 128/70 Blood Pressure Location Lt brachial Position Sitting Pulse 55 Pulse Source Pulse Oximeter Pulse Oximetry (%) 97 Oxygen Delivery Method Room Air Intake Visit Reasons: copd Dog Handler Or Trainer Required: No Allergies fentanyl Allergy (Verified 05/09/24 09:25) Swelling erythromycin base Adverse Reaction (Severe, Verified 05/09/24 09:25) Rash HPI Comments Details: The patient is a 74-year-old gentleman with a known history of CAD, aortic stenosis history of hemorrhagic strokes and now with worsening dyspnea on exertion. 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 He was exposed to multiple fumes and apparently the mask that he was provided was not sufficient. So therefore for about 20 years he was exposed to disease fumes and toxins. At some point, the patient was evaluated by Pulmonary back in early 1999 and he did undergo imaging studies at [facility] where he was told that he likely had lung cancer. Ultimately he did follow-up with Pulmonary that point which ruled out the possibility of lung cancer. He did indeed have underlying pulmonary nodules at that time. More recently the patient has been evaluated for his cardiac issues. He did undergo a recent cardiac CT scan a [facility] which was personally by me. This CT scan that was done on 12/26/2021 demonstrated new once id mediastinal or hilar lymphadenopathy along with evidence of chronic bronchitis and significant air trapping. The imaging study is very limited in view the fact that it is primarily focused on the cardiac pictures and we do not have full will imaging of the lung windows. Therefore really hard to know exactly if the nodular densities have changed in size and there is any evidence of airspace disease elsewhere. But, based on what I see I do not see any evidence of consolidations to be consistent with pneumonia. The patient has not had any recent pulmonary function studies. In regards his multiple ailments he did have a rheumatology evaluation many years ago which evaluated him for different connective tissue conditions including alkalosising spondylitis along with other rheumatological issues. He was told that his workup was negative for any these findings. In view of the significant lymphadenopathy and the underlying pulmonary nodules it is worthwhile looking into this issue again. His cardiac CT scan also demonstrated significant cardiac disease. 02/08/2022 the patient is here for pulmonary follow-up visit. He continues to have shortness of breath. Recently underwent an MRI of the brain demonstrating no acute disease. However he does have chronic changes. he did start the inhaler and his respiratory status has improved. The shortness of breath has been improving which is reassuring. Patient also underwent a repeat CT scan demonstrating persistent lymphadenopathy. He has small subcentimeter pulmonary nodules that are less concerning. In addition to that he did undergo blood work which was pretty nonrevealing as far as the etiology of the lymphadenopathy. I did speak to Cardiology. The per for further evaluation and testing of the lymphadenopathy before putting him through an intensive evaluation for the aor tic stenosis and CAD. The patient understands that he is high risk for any procedure due to his underlying cardiovascular disease. Anesthesia did have a discussion with Cardiology the patient does have increased risk but at this point would need to have further evaluation for the lymphadenopathy in order to move for with a cardiac testing. The patient currently is agreeable to undergo endobronchial ultrasound bronchoscopy. Will plan to do that tomorrow February 09. 03/24/2022 the patient is here for a pulmonary follow-up visit. Overall she is doing about the same. Complaining of dyspnea on exertion. We did review his bronchoscopy results. His cultures were negative. Cytology was negative. He did undergo endobronchial ultrasound bronchoscopy in the lymph nodes were consistent with normal lymphocytes. No evidence of any malignancy or lymphoma noted. The patient did have further cardiac evaluation. Appears that he needs both cardiac bypass surgery in on aortic valve replacement. He was going to have surgery but then postponed it now for few weeks from now. In the meantime he did undergo pulmonary function studies. It appears that he has a mild degree of restrictive lung disease. The patient is concerned about surgery. I did explain to him from a pulmonary standpoint the patient does not have significant risks for postoperative pulmonary complications. However, he may need some oxygen specially if the restriction gets worse due to and a the cardiothoracic surgery. The patient may proceed with anesthesia and cardiac surgery from a pulmonary standpoint. 09/29/2022 the patient is here for a pulmonary follow-up visit. He did undergo his surgery. He is healing well from his cardiac surgery. However he has issues with his mentation. Sometimes he is more forgetful per his . He was given a prescription for Trelegy inhaler and he did pick it up. However, he has not used it. His does remind him but he also tends to forget. In the office we did review his last CT scan of the chest that he had recently. He does have some of day pattern in the pulmonary nodules in the lymphadenopathy appears to be stable if not better. With the mosaic pattern I did explain to the patient that using a bronchodilator will help improve his respiratory capacity. I did provide him with a nebulized treatment in the office in the patient did feel better. Therefore I will go ahead and order a nebulizer for him that he can use twice a day with the hope that he can improve his respiratory capacity. 04/06/2023 the patient is here for pulmonary follow-up visit. The patient is doing very well from a respiratory status. Seems like after having cardiac surgery his respiratory issues have subsided significantly. He has not required his nebulizer no longer using any inhalers. I did recommend he use a short- acting beta agonist as needed. I did give her prescribe a prescription. Otherwise he can also use the nebulizer as needed. He does have some slight end expiratory wheezing still on examination. He is having issues with question seizures and also vertigo. That is really limiting his the ability to exercise and walk. Hopefully if his symptoms subsided can start exercising more regularly in building up his respiratory capacity. His last CT scan of the chest was back in August 2022 demonstrating pulmonary nodules. Will plan to repeat the CT scan sometime in the winter of 2023 to follow-up with the pulmonary nodules. 04/27/2023 The patient is here for a hospital F/U visit. Having alot of GI complaints with N/V and diarrhea. He also had subjective fevers and chills, fatigue and weight loss. [place] [facility] [place] a[place] abdomen followed by a CT chest. I personally reviewed the CT chest from 09/09 and 03/2023. The appears to have a 5cm mass like density in the left infrahilar area associated with a post obstructive pneumonia and pleural effusion. He was told her likely had cancer. He did not want to pursue any agressive dianostic interventions. He is aggreeable to a PET scan. In the meantime, we will keep him a longer course of antibiotics. 05/26/2023 the patient is here for pulmonary follow-up visit. Overall the patient has been feeling better. His GI symptoms have been subsiding as well. The subjective fevers and chills also have been subsiding. He completed 3 weeks of the Augmentin. The patient did undergo a PET scan. We personally reviewed. It appears that he does have some FDG activity around the periphery of the left infrahilar density on the left side. Within the density appears that it is without any significant metabolic activity. This suggests that is either necrotic tissue or Fluid. The fact that he responded to antibiotics suggesting likely a lung abscess. Also some FDG activity of the lymph nodes. He also has other extrapulmonary findings such as thickened bladder enlarged prostate. he is currently being evaluated for those issues by Urology. Based on the fact the patient clinically is feeling better will go ahead and we the CT scan 6 weeks after 3 additional weeks of antibiotics. If the area still continues to be abnormal then further diagnostic interventions are warranted. The patient is agreeable at this point. 07/27/2023 the patient is here for a pulmonary follow-up visit. Overall the patient is doing better. He has actually gained weight. Denies any significant cough or chest congestion. He did recently have a CT scan of the chest that we personally reviewed demonstrating interval resolution of the large left infrahilar mass suggesting an abscess. It appears to be completely treated after 2 courses of Augmentin. The patient does have poor dentition. Very suspicious for a polymicrobial micro aspiration resulting in the infection. Also to note that he had a seizure before this happened so therefore likely related to that episode as well. In the meantime will treating with chlorhexidine because of his poor dentition to minimize micro bacterial infec tions in the near future. He also needs to follow-up with a dentist regarding his bad molar disease. Patient continues to have some pulmonary nodules on his CT scan and will need further follow-up. In the meantime will start him on chlorhexidine and will request a barium swallow to assess for any reflux related disease. Still 11/02/2023 the patient is here for a pulmonary follow-up visit. The patient overall has been doing okay although recently started developing a cold like symptoms in his started developing increasing cough. Positive sick contacts. The patient denies any fevers or chills. He did have a CT scan of the chest personally by me in appears that the abscess has cleared and he is left with some minimal scarring in that area. He also has pulmonary nodules that are being followed. Will have to continue to follow on a yearly basis. Still having difficulty swallowing. Barium is abnormal. Does have an evaluation with GI in 1- 2 weeks. 05/09/2024 the patient is here for a pulmonary follow-up visit. Overall the patient has been doing very well. Actually lost a lot of weight but he has been intentional. He has been working on it. He also did follow-up with GI. They did recommend endoscopy but he opted not to since he has been feeling better. He denies any dysphagia or any significant regurgitation which is reassuring. He is going to monitor the symptoms. Explained to him if he does develop any difficulty with dysphagia or feeling like food is getting stuck or coming up definitely needs to follow-up with GI consider likely some type of balloon dilation of the GE junction area where appears to be tight. She the patient was treated for a respiratory illness during the last visit but seems to be doing better at this time. He does have a rescue inhaler that he rarely uses. The patient does have underlying pulmonary nodules. Will plan to follow-up with a CT scan in early 2024 but will go ahead and push that out to 6 months from now. If the patient develops any worsening symptoms prior to that he will call for an earlier assessment. [facility] Medical History (Updated 11/02/23 @ 18:20 by Josemanuel Vasquez MD) Dysphagia Lung mass Diabetes Aortic stenosis CAD (coronary artery disease) Dyspnea Chronic bronchitis Pulmonary nodules Lymphadenopathy Surgical History History of renal stent Hx of cholecystectomy Hx of carpal tunnel repair Family History Father Heart attack Stroke Mother Heart attack Cancer COPD (chronic obstructive pulmonary disease) Social History Alcohol intake: current Alcohol intake frequency: holidays/special occasions only Patient Tobacco Use Status: Never used Tobacco Review of Systems Const Denies body aches, Denies fatigue and Reports weight loss Eyes Denies exophthalmos ENT Denies change in voice Card Denies chest pain and Reports dyspnea on exertion Resp Reports chest congestion, Reports cough, Reports dyspnea on exertion and Denies wheezing GI Reports as per HPI, Denies bloating, Denies hematochezia, Denies change in stool character, Denies constipation, Denies diarrhea, Denies loose stools and Denies vomiting Reports no additional complaints Musc Reports back pain, Reports myalgias and Reports arthralgias Skin/Breast Denies rash Neuro Reports no additional complaints, Denies Abnormal speech present and Reports memory loss Psych Reports no additional complaints and Reports memory loss Endo Reports no additional complaints and Denies fatigue Sea/Lymph Reports no additional complaints Aller/Immun Reports no additional complaints and Denies wheezing Physical Exam Vital Signs: Last Vital Signs Pulse 55 05/09/24 09:23 BP 128/70 05/09/24 09:23 Pulse Ox 97 05/09/24 09:23 Oxygen Delivery Method Room Air 05/09/24 09:23 BMI result Body Mass Index 29.0 Const General: alert Neck Neck: Yes normal visual inspection, Yes full ROM and Yes no lymphadenopathy Chest Chest palpation & inspection: normal inspection of the chest Resp Auscultation: clear to auscultation bilaterally and no wheezes Cardio Rate: regular rate Rhythm: regular rhythm Heart sounds: S1 normal heart sound present, S2 normal heart sound present and Murmur heart sound present GI Palpation (GI): Soft to palpation and nontender Auscultation: normal bowel sounds Skin General skin exam: rashes and/or lesions noted Neuro Speech: No Abnormal speech present Assessment & Plan Assessment & Plan (1) Lung mass: Comment: abscess nearly completely gome Code(s): R91.8 - Other nonspecific abnormal finding of lung field Category: Medical Plan: Now resolved, abscess s/p 6 weeks of Augmentin (2) Pulmonary nodules: Code(s): R91.8 - Other nonspecific abnormal finding of lung field Category: Medical (3) Lymphadenopathy: Code(s): R59.1 - Generalized enlarged lymph nodes Category: Medical (4) Chronic bronchitis: Code(s): J42 - Unspecified chronic bronchitis Category: Medical Qualifiers: Chronic bronchitis type: mixed simple and mucopurulent Qualified Code(s): J41.8 - Mixed simple and mucopurulent chronic bronchitis (5) Dyspnea: Comment: better Code(s): R06.00 - Dyspnea, unspecified Category: Medical Qualifiers: Dyspnea type: dyspnea on exertion Qualified Code(s): R06.00 - Dyspnea, unspecified (6) CAD (coronary artery disease): Code(s): I25.10 - Atherosclerotic heart disease of [place] coronary artery without angina pectoris Category: Medical Qualifiers: Associated angina: without angina Coronary Disease-Associated Artery/Lesion type: unspecified vessel or lesion type [place] vs. transplanted heart: [place] heart Qualified Code(s): I25.10 - Atherosclerotic heart disease of [place] coronary artery without angina pectoris (7) Dysphagia: Code(s): R13.10 - Dysphagia, unspecified Category: Medical Qualifiers: Dysphagia type: unspecified Qualified Code(s): R13.10 - Dysphagia, unspecified Plan MIKE as needed GI evaluation on hold, shold call if symptoms worsen Repeat CT chest 10/2024 Follow-up in 6 months Coding Level of Care Code Est Pt Level 4 (65572) Complex EM visit Add On G2211 Diagnoses Lung mass R91.8 Pulmonary nodules R91.8 Lymphadenopathy R59.1 Mixed simple and mucopurulent chronic bronchitis J41.8 Chronic bronchitis type: mixed simple and mucopurulent Dyspnea on exertion R06.00 Dyspnea type: dyspnea on exertion Coronary artery disease involving [place] heart without angina pectoris, unspecified vessel or lesion type I25.10 Associated angina: without angina Coronary Disease-Associated Artery/Lesion type: unspecified vessel or lesion type [place] vs. transplanted heart: [place] heart Dysphagia, unspecified type R13.10 Dysphagia type: unspecified Time Spent (min) 17
== END 2024-05-09 09:42 | disposition home or self-care (01) ==
PROVIDERS: PCP Internal Medicine; Visit Provider Hospitalist
DX: R91.8 Other nonspecific abnormal finding of lung field (principal); R59.1 Generalized enlarged lymph nodes; J41.8 Mixed simple and mucopurulent chronic bronchitis; R06.00 Dyspnea, unspecified; I25.10 Atherosclerotic heart disease of native coronary artery without angina pectoris; R13.10 Dysphagia, unspecified
CPT/HCPCS: 99214; G2211

== ENCOUNTER → 2024-05-09 09:15 | Outpatient (BNVA) | payer MEDICARE, SELFPAY | PROVIDERS: PCP Internal Medicine; Visit Provider Hospitalist | DX: J41.8 Mixed simple and mucopurulent chronic bronchitis (principal); R91.8 Other nonspecific abnormal finding of lung field; R59.1 Generalized enlarged lymph nodes; I25.10 Atherosclerotic heart disease of native coronary artery without angina pectoris; R06.00 Dyspnea, unspecified; R13.10 Dysphagia, unspecified; Z57.2 Occupational exposure to dust | CPT/HCPCS: 99212 ==

== ENCOUNTER 2024-09-24 09:25 | Outpatient (REF) | payer MEDICARE, SELFPAY ==
--- NOTE | ~2024-09-24 | CT_ITS ---
CLINICAL HISTORY: R91.8 - Other nonspecific abnormal finding of lung field CT chest without IV contrast Comparison: CT/CT/SR - CT CHEST WO IV CON - 10/24/23 09:[address]/CT/SR - CT CHEST WO IV CON - 09/01/22 12:[address]/SR - CT CHEST WO CON - 02/04/22 10:38 EDT Findings: 3 mm right upper lobe nodule 19:4, 5 mm nodule right middle lobe 38:4 and 5 mm subpleural nodule right lower lobe on same image, 3 mm nodule right middle lobe 36:4 and 7 x 4 mm nodule right costophrenic sulcus 43:4. 3 mm left upper lobe nodule medially 14:4 and 3 mm nodule more posteriorly image 13. Stable right upper lobe granuloma. All appears stable to the February 04, 2022 CT, and given stability greater than 2 years supporting benign nodules. No further follow-up required. Similar emphysematous changes. Mosaic lung attenuation compatible with small airway disease either reactive or obstructive. Reticular changes in the subpleural lungs suggesting mild fibrosis as on priors. No UIP pattern. No consolidation. Thoracic inlet intact. No thyroid nodules. Borderline cardiomegaly with median sternotomy changes. No pericardial effusion. Extensive calcification of the [place] coronary arteries. No enlarged mediastinal or hilar lymph nodes. Esophagus within normal limits. Equivocal small hiatal hernia. No acute process evident upper abdomen. Cholecystectomy. Partially imaged right renal cysts. Mild splenomegaly. No acute appearing osseous abnormality. Thoracic spondylosis/diffuse idiopathic skeletal hyperostosis. IMPRESSION: Stable small bilateral pulmonary nodules. Given stability greater than 2 years, benign nodules suggested, and no further follow-up required. Stable mosaic appearance of the lung parenchyma and mild subpleural fibrosis. No UIP pattern. No consolidation. This document has been electronically signed by: Edgardo García MD on 09/24/2024 12:03:36
--- OUTSIDE RECORDS SUMMARY | 2024-09-24 09:50 | XMS_ITS | Continuity of Care Document ---
Author Organization [facility] Address [address] [facility], 3r d Floor, [address] [place] [id number]- Care Team Providers Care Credit Portfolio Advisor Name Role Phone Yordy Abbott MD Primary Care Physician [phone] [place] [facility] [place]s): 08/22/24 - 09/21/24 [facility] [address], [address] [place] [id number] Encounter Type: Triage Allergies, Adverse Reactions, Alerts Substance Criticality Severity Reaction Reaction Severity Status erythromycin GI upset Active fentanyl 1 PATCH ONLY Swelling - edema - symptom Active 1PATCH Immunizations Given and Recorded Vaccine Date Status Refusal Reason tetanus/diphtheria/pertussis, acel(Tdap) 08/07/14 Given Medications acetaminophen 325 mg oral tablet 650 mg, 2, tablet, By Mouth, Every 6 hours, PRN, # 24 tablet, Refills 0, Tot. Refills 0, Maintenance, Pain , Moderate, 07/09/22 1:31:00 PM EDT, Route to Pharmacy Electronically, [facility]/pharmacy #[id number], Partial fill upon patient request if the prescription is for a schedule II opioid drug., 168, cm, 07/09/22 11:39:00 EDT, Height, 77.7, kg, 07/09/22 11:39:00 EDT, Dry Weight Start Date: 07/09/22 Status: Ordered Quantity: 24.0 Unit: tablet Repeat number: 1 amLODIPine 10 mg oral tablet 1 tablet = 10 mg, By Mouth, Daily at bedtime, # 30 tablet, 0 Refills, Maintenance, 02/10/24 3:32:00 PM EDT, Tablet, Partial fill upon patient request if the prescription is for a schedule II opioid drug. Start Date: 02/10/24 Status: Ordered Quantity: 30.0 Unit: tablet Repeat number: 1 Aspir-Low 81 mg oral enteric coated tablet 1 tablet = 81 mg, By Mouth, Daily, # 90 tablet, 0 Refills, Maintenance, 05/22/13 2:16:48 PM EDT, EC Tablet, [facility] Start Date: 05/22/13 Status: Ordered Quantity: 90.0 Unit: tablet Repeat number: 1 atorvastatin 80 mg oral tablet 1 tablet = 80 mg, By Mouth, Daily at bedtime, # 30 tablet, 0 Refills, Maintenance, 04/29/22 11:17:00AM EDT, Tablet, [facility]/pharmacy #[id number], Partial fill upon patient request if the prescription is for a schedule II opioid drug., 168, cm, 04/29/22 7:29:00 EDT, Height, 82.3, kg, 04/22/22 8:30:00 EDT, DryWeight Start Date: 04/29/22 Status: Ordered Quantity: 30.0 Unit: tablet Repeat number: 1 carvedilol 25 mg oral tablet 25 mg, 1, tablet, By Mouth, 2 times a day, # 60 tablet, Refills 0, Maintenance, 04/22/23 4:20:00 PM EDT, Partial fill upon patient request if the prescription is for a schedule II opioid drug. Start Date: 04/22/23 Status: Ordered Quantity: 60.0 Unit: tablet Repeat number: 1 chlorthalidone 25 mg oral tablet 12.5 mg, 0.5, tablet, By Mouth, Daily, # 30 tablet, Refills 0, Maintenance, 04/22/23 4:20:00 PM EDT, Partial fill upon patient request if the prescription is for a schedule II opioid drug. Start Date: 04/22/23 Status: Ordered Quantity: 30.0 Unit: tablet Repeat number: 1 chondroitin-glucosamine 1.2 g-1.5 g oral capsule 1 capsule, By Mouth, Daily at bedtime, 0 Refills, Maintenance, 10/23/21 4:32:00 AM EST, Partial fill upon patient request if the prescription is for a schedule II opioid drug. Start Date: 10/23/21 Status: Ordered Repeat number: 1 donepezil 10 mg oral tablet Refills 0, Maintenance, 08/29/24 11:15:00 AM EST, Partial fill upon patient request if the prescription is for a schedule II opioid drug. Start Date: 08/29/24 Status: Ordered Repeat number: 1 Farxiga = 10 mg, By Mouth, Daily, 0 Refills, Maintenance, 03/11/23 4:10:00 PM EDT, Partial fill upon patientrequest if the prescription is for a schedule II opioid drug. Start Date: 03/11/23 Status: Ordered Repeat number: 1 Farxiga 10 mg oral tablet 0 Refills, Maintenance, 08/29/24 11:16:00 AM EST, Partial fill upon patient request if the prescription is for a schedule II opioid drug. Start Date: 08/29/24 Status: Ordered Repeat number: 1 Ferrous Sulfate EC 65 mg, By Mouth, Daily, Refills 0, Maintenance, 10/23/21 4:29:00 AM EST, Partial fill upon patient request if the prescription is for a schedule II opioid drug. Start Date: 10/23/21 Status: Ordered Repeat number: 1 hydrOXYzine pamoate 25 mg oral capsule 0 Refills, Maintenance, 08/29/24 11:15:00 AM EST, Partial fill upon patient request if the prescription is for a schedule II opioid drug. Start Date: 08/29/24 Status: Ordered Repeat number: 1 Isosorbide Mononitrate = 30 mg, By Mouth, 0 Refills, Maintenance, 07/30/24 8:03:00 AM EST, Partial fill upon patient request if the prescription is for a schedule II opioid drug. Start Date: 07/30/24 Status: Ordered Repeat number: 1 Keppra 750 mg oral tablet 1 tablet = 750 mg, By Mouth, 2 times a day, # 60 tablet, 2 Refills, Maintenance, 03/05/23 12:37:00 PM EDT, Tablet, [facility]/pharmacy #[id number], Partial fill upon patient request if the prescription is for a schedule II opioid drug., 168, cm, 03/05/23 0:28:00 EDT, Height, 85, kg, 03/05/23 0:28:00 EDT, Dry Weight Start Date: 03/05/23 Status: Ordered Quantity: 60.0 Unit: tablet Repeat number: 3 LORazepam 1 mg oral tablet 1 tablet = 1 mg, By Mouth, Daily at bedtime, PRN as needed for anxiety, 0 Refills, Maintenance, 08/19/24 10:59:00 PM EST, Partial fill upon patient request if the prescription is for a schedule II opioid drug. Start Date: 08/19/24 Status: Ordered Repeat number: 1 losartan 100 mg oral tablet 1 tablet = 100 mg, By Mouth, Daily, # 30 tablet, 0 Refills, Maintenance, 11/25/22 11:19:00 AM EST, Tablet, [facility]/pharmacy #[id number], 168, cm, 11/25/22 11:17:00 EST, Height, 84.5, kg, 11/23/22 18:10:00 EST, Dry Weight Start Date: 11/25/22 Status: Ordered Quantity: 30.0 Unit: tablet Repeat number: 1 melatonin 10 mg oral tablet 1 tablet = 10 mg, By Mouth, Daily at bedtime, PRN as needed for insomnia, # 200 tablet, 0 Refills, Maintenance, 10/23/21 4:30:00 AM EST, Tablet, Partial fill upon patient request if the prescription isfor a schedule II opioid drug. Start Date: 10/23/21 Status: Ordered Quantity: 200.0 Unit: tablet Repeat number: 1 memantine 10 mg oral tablet 1 tablet = 10 mg, By Mouth, 2 times a day, tapering up, # 60 tablet, 0 Refills, Maintenance, 09/22/2309:28:00 AM EST, Tablet, Partial fill upon patient request if the prescription is for a schedule IIopioid drug. Start Date: 09/22/22 Status: Ordered Quantity: 60.0 Unit: tablet Repeat number: 1 Multivitamin 1 tablet, By Mouth, Daily, 0 Refills, Maintenance, 10/23/21 5:22:00 AM EST, Partial fill upon patientrequest if the prescription is for a schedule II opioid drug. Start Date: 10/23/21 Status: Ordered Repeat number: 1 PARoxetine 10 mg oral tablet 10 mg, 1, tablet, By Mouth, Daily, # 90 tablet, Refills 0, Maintenance, 08/14/24 12:32:00 AM EST, Partial fill upon patient request if the prescription is for a schedule II opioid drug. Start Date: 08/14/24 Status: Ordered Quantity: 90.0 Unit: tablet Repeat number: 1 Plavix 75 mg oral tablet 75 mg, 1, tablet, By Mouth, Daily, # 30 tablet, Refills 0, Tot. Refills 0, Maintenance, 04/29/22 11:19:00 AM EDT, Route to Pharmacy Electronically, [facility]/pharmacy #[id number], Partial fill upon patient request if the prescription is for a schedule II opioid drug., 168, cm, 04/29/22 7:29:00 EDT, Height, 82.3, kg, 04/22/22 8:30:00 EDT, Dry Weight Start Date: 04/29/22 Status: Ordered Quantity: 30.0 Unit: tablet Repeat number: 1 traZODone 50 mg oral tablet 100 mg, 2, tablet, By Mouth, Daily at bedtime, # 270 tablet, Refills 0, Maintenance, 05/08/22 5:33:00 PM EDT, Partial fill upon patient request if the prescription is for a schedule II opioid drug. Start Date: 05/08/22 Status: Ordered Quantity: 270.0 Unit: tablet Repeat number: 1 Vitamin B1 = 100 mg, By Mouth, Daily, every other day, 0 Refills, Maintenance, 11/23/22 8:32:00 AM EST, Partial fill upon patient request if the prescription is for a schedule II opioid drug. Start Date: 11/23/22 Status: Ordered Repeat number: 1 Vitamin B2 100 mg oral tablet 2 tablet = 200 mg, By Mouth, 2 times a day, # 60 tablet, 0 Refills, Maintenance, 11/23/22 8:32:00 AM EST, Tablet, Partial fill upon patient request if the prescription is for a schedule II opioid drug. Start Date: 11/23/22 Status: Ordered Quantity: 60.0 Unit: tablet Repeat number: 1 Vitamin C 500 mg oral tablet 2 tablet = 1,000 mg, By Mouth, Daily, # 30 tablet, 0 Refills, Maintenance, 10/23/21 4:28:00 AM EST, Tablet, Partial fill upon patient request if the prescription is for a schedule II opioid drug. Start Date: 10/23/21 Status: Ordered Quantity: 30.0 Unit: tablet Repeat number: 1 Vitamin D3 1000 intl units oral tablet 1 tablet = 25 mcg, By Mouth, Daily, # 30 tablet, 0 Refills, Maintenance, 04/22/23 4:24:00 PM EDT, Tablet, Partial fill upon patient request if the prescription is for a schedule II opioid drug. Start Date: 04/22/23 Status: Ordered Quantity: 30.0 Unit: tablet Repeat number: 1 Problem List Condition Confirmation Course Effective Dates Status H ealth Status Informant Bilateral cataract repair Confirmed 09/2020 Active Mild atherosclerosis of carotid artery Confirmed Active CKD (chronic kidney disease) Confirmed Active CKD (chronic kidney disease), stage II Confirmed Active CAD (coronary artery disease) Confirmed Active COVID-19 1 Confirmed 12/01/22 Active Chronic daily headache Confirmed Active Hyperlipidemia Confirmed Active Hypertension Confirmed Active 1Problem added by Discern Expert Social History Social History Type Response Smoking Status Never (less than 100 in lifetime) entered on: 10/23/21 Sex Sex Representation Male (finding) Patient Care team information Care Team Personnel Name: Amelie Vences CNM Position: Reference Physician Member Role: Primary Care Nurse Address: [address] [place] [address]- Telecom: Name: Diana Joyce RN Position: [facility] SN RN Member Role: Primary Care Nurse Name: Noemy Malagon RN Position: [facility] RN Supv Member Role: Primary Care Nurse Name: Matteo Bond RN Position: [facility] RN Member Role: Primary Care Nurse Name: Xavier Powell DO Position: [facility] Renal MD Member Role: Lifetime Consulting Physician Address: [address] [place], [place] [address] [place] [address]- Telecom: Name: Yordy Abbott MD Position: [facility] Outreach Member Role: PCP Address: [address] [place] [address]- Telecom: Name: Saritha Elizabeth RN Position: S RN Member Role: Primary Care Nurse Name: Vida Hutton RN Position: S RN Member Role: Primary Care Nurse Name: Lincoln Ruffin RN Position: S RN Member Role: Primary Care Nurse Name: Jani Guzman RN Position: [facility] RN Member Role: Primary Care Nurse Care Team Related Persons Name: KATIE DUBON Name: LEONEL DUBON Insurance Providers Guarantor name: ANITA DUBON Health Plan Information #: 1 Payer: MEDICARE PART B OUTPT Member Number: NA Policy Number: NA Group Number: NA Health Plan Information #: 2 Payer: MEDEX Member Number: NA Policy Number: NA Group Number: NA
--- OUTSIDE RECORDS SUMMARY | 2024-09-24 09:50 | XMS_ITS | Continuity of Care Document ---
Author Organization [facility] Address [address] [facility], [address] d Floor, [address] [place] [address]- Care Team Providers Care Soap Grinder Name Role Phone Yordy Abbott MD Primary Care Physician [phone] Encounter [facility] [place] Date(s): 08/01/24 - 08/31/24 [facility] [address] [facility] 3rd Floor, [address] [place] [address] Encounter Type: [...] 1:31:00 PM EDT, Route to Pharmacy Electronically, [facility]/pharmacy #[id number], Partial fill upon patient request if the [...] Maintenance, 05/22/13 2:16:48 PM EDT, EC Tablet, [facility] Start Date: 05/22/13 Status: Ordered Quantity: 90.0 Unit: tablet Repeat number: 1 atorvastatin 80 mg oral tablet 1 tablet = 80 mg, By Mouth, Daily at bedtime, # 30 tablet, 0 Refills, Maintenance, 04/29/22 11:17:00AM EDT, Tablet, [facility]/pharmacy #[id number], Partial fill upon patient [...] Refills, Maintenance, 03/05/23 12:37:00 PM EDT, Tablet, [facility]/pharmacy #[id number], Partial fill upon patient request if the [...] Refills, Maintenance, 11/25/22 11:19:00 AM EST, Tablet, [facility]/pharmacy #[id number], 168, cm, 11/25/22 11:17:00 [...] 11:19:00 AM EDT, Route to Pharmacy Electronically, [facility]/pharmacy #[id number], Partial fill upon patient request if the [...] Physician Member Role: Primary Care Nurse Address: [address] [place] [id number]- Telecom: Name: Diana Joyce RN Position: [facility] SN RN Member Role: Primary Care Nurse Name: Noemy Malagon RN Position: [facility] RN Supv Member Role: Primary Care Nurse Name: Rakesh Tobar RN Position: [facility] RN Supv Member Role: Primary Care Nurse Name: Matteo Bond RN Position: [facility] RN Member Role: Primary Care Nurse Name: Xavier Powell DO Position: [facility] Renal MD Member Role: Lifetime Consulting Physician Address: [address] [place], [place] [address] [place] [address]- Telecom: Name: Yordy Abbott MD Position: [facility] Outreach Member Role: PCP Address: [address] [place] [address]- [place] Telecom: Name: Saritha Elizabeth RN Position: [facility] RN Member Role: Primary Care Nurse Name: Vida Hutton RN Position: S RN Member Role: Primary Care Nurse Name: Lincoln Ruffin RN Position: [facility] RN Member Role: Primary Care Nurse Name: Jani Guzman RN Position: [place] RN Member Role: Primary Care Nurse Care [...]
--- OUTSIDE RECORDS SUMMARY | 2024-09-24 09:51 | XMS_ITS | Patient Health Record ---
Author Organization [facility] Address [address] [place] [address] Care Team Providers Care General Labor Forklift Operator Name Role Phone Andrew Dickens Primary Care Provider [phone] Yordy Abbott Unavailable Unavailable Reason For Referral No Information Medications Medication SIG (Take, Route, Frequency, Duration) Notes Start Date End Date Status OXYCODONE-ACETAMINOP HEN 5-325 MG TAB 0 1-2 prn headacheand back pain, used 10/month for 30 *please review for potential update for e-prescription and drug interaction check* 05/06/2016 Active Atorvastatin Calcium 20 MG 0 Oral 1 qhs for 30 move to 05/06/[address] 40 MG TAB 0 1 qam for 30 *please review for potential update for e-prescription and drug interaction check* 05/06/2016 Active LOSARTAN-HYDROCHLORO THIAZIDE 100-12.5 MG TAB 0 1 qam for 30 *please review for potential update for e-prescription and drug interaction check* 05/06/2016 Active METFORMIN HCL 500 MG TABLET 0 1 bid for 30 *please review for potential update for e-prescription and drug interaction check* 05/06/2016 Active Multi-Vitamin 0 Oral 1 qd for 30 05/06/2016 Active Vitamin B-2 100 mg 0 Oral 1 bid for 30 Leonel Cary 6 Active DIVALPROEX SOD ER 250 MG TAB 120 Increase 1 tab q 7 days up to full dose 4 tabs qhs. for 30 *please review for potential update for e-prescription and drug interaction check* 05/07/2016 Active DIVALPROEX SOD ER 500 MG TAB 60 1 tab bid. for 30 *please review for potential update for e-prescription and drug interaction check* change dose to 500 mg tabs 07/21/2016 Active AMLODIPINE BESYLATE 5 MG TAB 0 1 qhs for 30 *please review for potential update for e-prescription and drug interaction check* 05/06/2016 Active ASPIRIN EC 81 MG TABLET 0 1 qd for 30 *please review for potential update for e-prescription and drug interaction check* 05/06/2016 Active Plan Of Treatment No Information Insurance Providers Payer Name Payer Address Payer Phone Subscriber Number Group Number Insured Name Patient Relationship to Insured Coverage Start Date Coverage End Date [facility] [address] [place] [address] [place], [place] [id number] Jorge Cadet Self - patient is the insured MEDICARE B [address] [facility] [place], [place] [id number] Jogre Cadet Self - patient is the insured
== END 2024-09-24 09:26 | disposition home or self-care (01) ==
LOC: HO.CT 09:25
PROVIDERS: PCP Internal Medicine; Visit Provider Hospitalist
DX: R91.8 Other nonspecific abnormal finding of lung field (principal)
CPT/HCPCS: 71250

== ENCOUNTER → 2024-09-24 09:31 | Outpatient (BNV) | payer MEDICARE, SELFPAY | PROVIDERS: PCP Internal Medicine; Visit Provider Radiology Diagnostic Radiology | DX: R91.1 Solitary pulmonary nodule (principal) | CPT/HCPCS: 71250 ==

== ENCOUNTER 2024-11-07 09:41 | Outpatient (AMB) | payer MEDICARE, SELFPAY ==
[2024-11-07 09:46] VITALS: BP 110/68; PULSE 64; O2SAT 99; BMI 28.3
--- NOTE | 2024-11-07 09:46 | A.OFFVIS_ITS ---
Vital Signs 11/07/24 09:46 Height 5 ft 6 in Weight 175 lb 4.28 oz BMI 28.3 BP 110/68 Blood Pressure Location Rt brachial Position Sitting Pulse 64 Pulse Source Pulse Oximeter Pulse Oximetry (%) 99 Oxygen Delivery Method Room Air Intake Visit Reasons: copd Allergies fentanyl Allergy (Verified 11/07/24 09:50) Swelling erythromycin base Adverse Reaction (Severe, Verified 11/07/24 09:50) Rash HPI Comments Details: The patient is a 74-year-old gentleman with a known history of CAD, aortic stenosis history of hemorrhagic strokes and now with worsening dyspnea on exertion. 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 He was exposed to multiple fumes and apparently the mask that he was provided was not sufficient. So therefore for about 20 years he was exposed to disease fumes and toxins. At some point, the patient was evaluated by Pulmonary back in early 1999 and he did undergo imaging studies at [facility] where he was told that he likely had lung cancer. Ultimately he did follow-up with Pulmonary that point which ruled out the possibility of lung cancer. He did indeed have underlying pulmonary nodules at that time. More recently the patient has been evaluated for his cardiac issues. He did undergo a recent cardiac CT scan a [facility] which was personally by me. This CT scan that was done on 12/26/2021 demonstrated new once id mediastinal or hilar lymphadenopathy along with evidence of chronic bronchitis and significant air trapping. The imaging study is very limited in view the fact that it is primarily focused on the cardiac pictures and we do not have full will imaging of the lung windows. Therefore really hard to know exactly if the nodular densities have changed in size and there is any evidence of airspace disease elsewhere. But, based on what I see I do not see any evidence of consolidations to be consistent with pneumonia. The patient has not had any recent pulmonary function studies. In regards his multiple ailments he did have a rheumatology evaluation many years ago which evaluated him for different connective tissue conditions including alkalosising spondylitis along with other rheumatological issues. He was told that his workup was negative for any these findings. In view of the significant lymphadenopathy and the underlying pulmonary nodules it is worthwhile looking into this issue again. His cardiac CT scan also demonstrated significant cardiac disease. 02/08/2022 the patient is here for pulmonary follow-up visit. He continues to have shortness of breath. Recently underwent an MRI of the brain demonstrating no acute disease. However he does have chronic changes. he did start the inhaler and his respiratory status has improved. The shortness of breath has been improving which is reassuring. Patient also underwent a repeat CT scan demonstrating persistent lymphadenopathy. He has small subcentimeter pulmonary nodules that are less concerning. In addition to that he did undergo blood work which was pretty nonrevealing as far as the etiology of the lymphadenopathy. I did speak to Cardiology. The per for further evaluation and testing of the lymphadenopathy before putting him through an intensive evaluation for the aortic stenosis and CAD. The patient understands that he is high risk for any procedure due to his underlying cardiovascular disease. Anesthesia did have a discussion with Cardiology the patient does have increased risk but at this point would need to have further evaluation for the lymphadenopathy in order to move for with a cardiac testing. The patient currently is agreeable to undergo endobronchial ultrasound bronchoscopy. Will plan to do that tomorrow February 09. 03/24/2022 the patient is here for a pulmonary follow-up visit. Overall she is doing about the same. Complaining of dyspnea on exertion. We did review his bronchoscopy results. His cultures were negative. Cytology was negative. He did undergo endobronchial ultrasound bronchoscopy in the lymph nodes were consistent with normal lymphocytes. No evidence of any malignancy or lymphoma noted. The patient did have further cardiac evaluation. Appears that he needs both cardiac bypass surgery in on aortic valve replacement. He was going to have surgery but then postponed it now for few weeks from now. In the meantime he did undergo pulmonary function studies. It appears that he has a mild degree of restrictive lung disease. The patient is concerned about surgery. I did explain to him from a pulmonary standpoint the patient does not have significant risks for postoperative pulmonary complications. However, he may need some oxygen specially if the restriction gets worse due to and a the cardiothoracic surgery. The patient may proceed with anesthesia and cardiac surgery from a pulmonary standpoint. 09/29/2022 the patient is here for a pulmonary follow-up visit. He did undergo his surgery. He is healing well from his cardiac surgery. However he has issues with his mentation. Sometimes he is more forgetful per his . He was given a prescription for Trelegy inhaler and he did pick it up. However, he has not used it. His does remind him but he also tends to forget. In the office we did review his last CT scan of the chest that he had recently. He does have some of day pattern in the pulmonary nodules in the lymphadenopathy appears to be stable if not better. With the mosaic pattern I did explain to the patient that using a bronchodilator will help improve his respiratory capacity. I did provide him with a nebulized treatment in the office in the patient did feel better. Therefore I will go ahead and order a nebulizer for him that he can use twice a day with the hope that he can improve his respiratory capacity. 04/06/2023 the patient is here for pulmonary follow-up visit. The patient is doing very well from a respiratory status. Seems like after having cardiac surgery his respiratory issues have subsided significantly. He has not required his nebulizer no longer using any inhalers. I did recommend he use a short- acting beta agonist as needed. I did give her prescribe a prescription. Otherwise he can also use the nebulizer as needed. He does have some slight end expiratory wheezing still on examination. He is having issues with question seizures and also vertigo. That is really limiting his the ability to exercise and walk. Hopefully if his symptoms subsided can start exercising more regularly in building up his respiratory capacity. His last CT scan of the chest was back in August 2022 demonstrating pulmonary nodules. Will plan to repeat the CT scan sometime in the winter of 2023 to follow-up with the pulmonary nodules. 04/27/2023 The patient is here for a hospital F/U visit. Having alot of GI complaints with N/V and diarrhea. He also had subjective fevers and chills, fatigue and weight loss. He was admitted to [facility] and had aCT abdomen followed by a CT chest. I personally reviewed the CT chest from 09/09 and 03/2023. The appears to have a 5cm mass like density in the left infrahilar area associated with a post obstructive pneumonia and pleural effusion. He was told her likely had cancer. He did not want to pursue any agressive dianostic interventions. He is aggreeable to a PET scan. In the meantime, we will keep him a longer course of antibiotics. 05/26/2023 the patient is here for pulmonary follow-up visit. Overall the patient has been feeling better. His GI symptoms have been subsiding as well. The subjective fevers and chills also have been subsiding. He completed 3 weeks of the Augmentin. The patient did undergo a PET scan. We personally reviewed. It appears that he does have some FDG activity around the periphery of the left infrahilar density on the left side. Within the density appears that it is without any significant metabolic activity. This suggests that is either necrotic tissue or Fluid. The fact that he responded to antibiotics suggesting likely a lung abscess. Also some FDG activity of the lymph nodes. He also has other extrapulmonary findings such as thickened bladder enlarged prostate. he is currently being evaluated for those issues by Urology. Based on the fact the patient clinically is feeling better will go ahead and we the CT scan 6 weeks after 3 additional weeks of antibiotics. If the area still continues to be abnormal then further diagnostic interventions are warranted. The patient is agreeable at this point. 07/27/2023 the patient is here for a pulmonary follow-up visit. Overall the patient is doing better. He has actually gained weight. Denies any significant cough or chest congestion. He did recently have a CT scan of the chest that we personally reviewed demonstrating interval resolution of the large left infrahilar mass suggesting an abscess. It appears to be completely treated after 2 courses of Augmentin. The patient does have poor dentition. Very suspicious for a polymicrobial micro aspiration resulting in the infection. Also to note that he had a seizure before this happened so therefore likely related to that episode as well. In the meantime will treating with chlorhexidine because of his poor dentition to minimize micro bacterial infections in the near future. He also needs to follow-up with a dentist regarding his bad molar disease. Patient continues to have some pulmonary nodules on his CT scan and will need further follow-up. In the meantime will start him on chlorhexidine and will request a barium swallow to assess for any reflux related disease. Still 11/02/2023 the patient is here for a pulmonary follow-up visit. The patient overall has been doing okay although recently started developing a cold like symptoms in his started developing increasing cough. Positive sick contacts. The patient denies any fevers or chills. He did have a CT scan of the chest personally by me in appears that the abscess has cleared and he is left with some minimal scarring in that area. He also has pulmonary nodules that are being followed. Will have to continue to follow on a yearly basis. Still having difficulty swallowing. Barium is abnormal. Does have an evaluation with GI in 1- 2 weeks. 05/09/2024 the patient is here for a pulmonary follow-up visit. Overall the patient has been doing very well. Actually lost a lot of weight but he has been intentional. He has been working on it. He also did follow-up with GI. They did recommend endoscopy but he opted not to since he has been feeling better. He denies any dysphagia or any significant regurgitation which is reassuring. He is going to monitor the symptoms. Explained to him if he does develop any difficulty with dysphagia or feeling like food is getting stuck or coming up definitely needs to follow-up with GI consider likely some type of balloon dilation of the GE junction area where appears to be tight. She the patient was treated for a respiratory illness during the last visit but seems to be doing better at this time. He does have a rescue inhaler that he rarely uses. The patient does have underlying pulmonary nodules. Will plan to follow-up with a CT scan in early 2024 but will go ahead and push that out to 6 months from now. If the patient develops any worsening symptoms prior to that he will call for an earlier assessment. 11/07/2024 the patient is here for a pulmonary follow-up visit. Overall he is doing okay. Has been having issues with difficulty breathing when eating. Although he denies choking or aspiration. He has been having issues with his mental health. He has been having issues with dementia as per his and also with panic attacks and now working with a psychiatrist. His medications have been changed and he is trying to get adjust that to them. In the meantime he did have a recent CT scan of the chest that I personally reviewed. Nodules are stable now for about 2 years therefore is all reassuring the infectious process is now clear. He does have some mosaic pattern. Since the does have a Trelegy inhaler that he can try I did encourage him to do it and if that works for him I can also send him a different inhaler is too expensive. He also has a nebulizer he does not like to use it. For now he is doing okay will follow-up in 6-8 months if he has any issues he will call for an earlier assessment. [facility] Medical History (Updated 11/07/24 @ 14:45 by Josemanuel Vasquez MD) Dysphagia Lung mass Diabetes Aortic stenosis CAD (coronary artery disease) Dyspnea Chronic bronchitis Pulmonary nodules Lymphadenopathy Surgical History History of renal stent Hx of cholecystectomy Hx of carpal tunnel repair Family History Father Heart attack Stroke Mother Heart attack Cancer COPD (chronic obstructive pulmonary disease) Social History Alcohol intake: current Alcohol intake frequency: holidays/special occasions only Patient Tobacco Use Status: Never used Tobacco Review of Systems Const Denies body aches, Reports difficulty sleeping, Denies fatigue and Reports weight loss Eyes Denies exophthalmos ENT Denies change in voice Card Denies chest pain and Reports dyspnea on exertion Resp Reports chest congestion, Reports cough, Reports dyspnea on exertion and Denies wheezing GI Reports as per HPI, Denies bloating, Denies hematochezia, Denies change in stool character, Denies constipation, Denies diarrhea, Denies loose stools and Denies vomiting Reports no additional complaints Musc Reports back pain, Reports myalgias and Reports arthralgias Skin/Breast Denies rash Neuro Reports no additional complaints, Denies Abnormal speech present and Reports memory loss Psych Reports as per HPI and Reports memory loss Endo Reports no additional complaints and Denies fatigue Sea/Lymph Reports no additional complaints Aller/Immun Reports no additional complaints and Denies wheezing Physical Exam Vital Signs: Last Vital Signs Pulse 64 11/07/24 09:46 BP 110/68 11/07/24 09:46 Pulse Ox 99 11/07/24 09:46 Oxygen Delivery Method Room Air 11/07/24 09:46 BMI result Body Mass Index 28.3 Const General: alert Neck Neck: Yes normal visual inspection, Yes full ROM and Yes no lymphadenopathy Chest Chest palpation & inspection: normal inspection of the chest Resp Auscultation: no wheezes and breath sounds absent Cardio Rate: regular rate Rhythm: regular rhythm Heart sounds: S1 normal heart sound present, S2 normal heart sound present and Murmur heart sound present GI Palpation (GI): Soft to palpation and nontender Auscultation: normal bowel sounds Skin General skin exam: rashes and/or lesions noted Neuro Speech: No Abnormal speech present Assessment & Plan Assessment & Plan (1) Lung mass: Comment: abscess nearly completely gome Code(s): R91.8 - Other nonspecific abnormal finding of lung field Category: Medical Plan: Now resolved, abscess s/p 6 weeks of Augmentin (2) Pulmonary nodules: Comment: stable x 2 years Code(s): R91.8 - Other nonspecific abnormal finding of lung field Category: Medical (3) Lymphadenopathy: Code(s): R59.1 - Generalized enlarged lymph nodes Category: Medical (4) Chronic bronchitis: Code(s): J42 - Unspecified chronic bronchitis Category: Medical Qualifiers: Chronic bronchitis type: mixed simple and mucopurulent Qualified Code(s): J41.8 - Mixed simple and mucopurulent chronic bronchitis (5) Dyspnea: Comment: better Code(s): R06.00 - Dyspnea, unspecified Category: Medical Qualifiers: Dyspnea type: dyspnea on exertion Qualified Code(s): R06.00 - Dyspnea, unspecified (6) CAD (coronary artery disease): Code(s): I25.10 - Atherosclerotic heart disease of [place] coronary artery without angina pectoris Category: Medical Qualifiers: Associated angina: without angina Coronary Disease-Associated Artery/Lesion type: unspecified vessel or lesion type [place] vs. transplanted heart: [place] heart Qualified Code(s): I25.10 - Atherosclerotic heart disease of [place] coronary artery without angina pectoris (7) Dysphagia: Code(s): R13.10 - Dysphagia, unspecified Category: Medical Qualifiers: Dysphagia type: unspecified Qualified Code(s): R13.10 - Dysphagia, unspecified Plan Trial Bishnu MCKEON as needed Follow-up in 6-8 months Coding Level of Care Code Est Pt Level 4 (89783) Complex EM visit Add On G2211 Diagnoses Lung mass R91.8 Pulmonary nodules R91.8 Lymphadenopathy R59.1 Mixed simple and mucopurulent chronic bronchitis J41.8 Chronic bronchitis type: mixed simple and mucopurulent Dyspnea on exertion R06.00 Dyspnea type: dyspnea on exertion Coronary artery disease involving [place] heart without angina pectoris, unspecified vessel or lesion type I25.10 Associated angina: without angina Coronary Disease-Associated Artery/Lesion type: unspecified vessel or lesion type [place] vs. transplanted heart: [place] heart Dysphagia, unspecified type R13.10 Dysphagia type: unspecified Time Spent (min) 17
--- OUTSIDE RECORDS SUMMARY | 2024-11-07 10:01 | XMS_ITS | Encounter Summary ---
Author Organization [facility] Address [address] [place] [address] Phone Care Team Providers Care Hospitality Ambassador Name Role Phone Yordy Abbott MD Primary Care Provider + [phone] Encounter Details Date Type Department Care Team (Late st Contact Info) Description 12/13/2023 Documentation Only [facility] [address] [place] [address] Karolina Jernigan [address] [place] [phone] Social History Tobacco Use Types Packs/Day Years Used Date Smoking Tobacco: Never Alcohol Use Standard Drinks/Week Comments No 0 (1 standard drink = 0.6 oz pur e alcohol) Sex and Gender Information Value Date Recorded Sex Assigned at Not on file Legal Sex Male 3:02 PM EDT Gender Identity Not on file Sexual Orientation Not on file documented as of this encounter Plan of Treatment Upcoming Encounters Date Type Department Care Team (Late st Contact Info) Description 04/01/2025 2:00 PM EDT Office Visit [facility] [address] [place] [address] Rubio Self MD [address] [place] [address] documented as of this encounter Visit Diagnoses Not on filedocumented in this encounter Care Teams Hospitality Ambassador Relationship Specialty Start Date End Date Yordy Abbott MD [address] [place] [id number] PCP - General Internal Medicine 01/12/24 documented as of this encounter
--- OUTSIDE RECORDS SUMMARY | 2024-11-07 10:01 | XMS_ITS | Encounter Summary ---
Author Organization [facility], Address [address] [place] [address] Phone Care Team Providers Care Architect In Training Name Role Phone Yordy Abbott MD Primary Care Provider + [phone] Encounter Details Date Type Department Care Team (Late st Contact Info) Description 03/15/2023 Documentation Only [facility], [address] [place] [address] Rubio Self MD [address] [place] [address] [place] [address] Social History Tobacco Use Types Packs/Day Years [...] Visit [facility] [address] [place] [address] Rubio Self MD [address] [place] [address] [place] [address] documented as of this encounter Visit Diagnoses Not on filedocumented in this encounter Care Teams Architect In Training Relationship Specialty Start Date End Date Yordy Abbott MD [address] [place] [address] PCP - General Internal Medicine 01/12/24 documented as of this encounter
--- OUTSIDE RECORDS SUMMARY | 2024-11-07 10:01 | XMS_ITS | Encounter Summary ---
Author Organization [facility], Address [address] [place] [address] Phone Care Team Providers Care Net Developer Name Role Phone Yordy Abbott MD Primary Care Provider + [phone] Encounter Details Date Type Department Care Team (Late st Contact Info) Description 01/12/2024 Documentation Only [facility] [address] [place] [phone] Domonique Valdes [address] [place] [address] Social History Tobacco Use Types Packs/Day [...] Visit [facility], [address] [place] [address] Rubio Self MD [address] [place] [address] documented as of this encounter Visit Diagnoses Not on filedocumented in this encounter Care Teams Net Developer Relationship Specialty Start Date End Date Yordy Abbott MD [address] [place] [address] PCP - General Internal Medicine 01/12/24 documented as of this encounter
--- OUTSIDE RECORDS SUMMARY | 2024-11-07 10:01 | XMS_ITS | Encounter Summary ---
Author Organization [facility] Address [address] [place] [address] Phone Care Team Providers Care Vineyard Supervisor Name Role Phone Yordy Abbott MD Primary Care Provider + [phone] Encounter Details Date Type Department Care Team (Late st Contact Info) Description 12/14/2023 Documentation Only [facility] [address] [place] [address] [place] [address] [place] [phone] Social History Tobacco Use Types Packs/Day [...] Visit [facility] [address] [place] [address] Rubio Self MD [address] [place] [address] documented as of this encounter Visit Diagnoses Not on filedocumented in this encounter Care Teams Vineyard Supervisor Relationship Specialty Start Date End Date Yordy Abbott MD [address] [place] [phone] PCP - General Internal Medicine 01/12/24 documented as of this encounter
--- OUTSIDE RECORDS SUMMARY | 2024-11-07 10:01 | XMS_ITS | Encounter Summary ---
Author Organization [facility] Address [address] [place] [address] Phone Care Team Providers Care Pearl Stringer Name Role Phone Yordy Abbott MD Primary Care Provider + [phone] Encounter Details Date Type Department Care Team (Late st Contact Info) Description 11/28/2023 Documentation Only [facility] [address] [place] [address] Domonique Valdes [address] [place] [phone] Social History Tobacco Use Types Packs/Day [...] Visit [facility] [address] [place] [address] Rubio Self MD [address] [place] [address] documented as of this encounter Visit Diagnoses Not on filedocumented in this encounter Care Teams Pearl Stringer Relationship Specialty Start Date End Date Yordy Abbott MD [address] [place] [phone] PCP - General Internal Medicine 01/12/24 documented as of this encounter
--- OUTSIDE RECORDS SUMMARY | 2024-11-07 10:01 | XMS_ITS | Clinical Summary ---
Author Organization [facility] Address [address] [place] [address] Care Team Providers Care Radio Program Checker Name Role Phone Yordy Abbott MD Primary Care Provider [phone] Social History Tobacco Use Types Packs/Day Years Used Date Smoking Tobacco: Never Assessed Sex and Gender Information Value Date Recorded Sex Assigned at Not on file Gender Identity Not on file Sexual Orientation Not on file Plan of Treatment Health Maintenance Due Date Last Done Comments Hepatitis C Screening 1950 COVID-19 Vaccine (#1) 1951 Depression Screening 1963 Preventative Health Evaluation 1969 DTap / Tdap / Td (1 - Tdap) 1970 Colon Cancer Screening (Colonoscopy) 1996 Shingrix-Zoster Vaccine (1 of 2) 2001 Fall Risk Assessment 2016 Pneumococcal Vaccine (1 of 1 - PCV) 2016 Influenza Vaccine (#1) 2024 RSV Adult > 60+ Yrs or Pregn ant (1 - 1-dose 75+ series) 2026 Hepatitis B Vaccines Aged Out No long er eligible based on patient's age to complete this topic RSV Ped < 20 months Aged Out No longe r eligible based on patient's age to complete this topic Care Teams Radio Program Checker Relationship Specialty Start Date End Date Yordy Abbott MD [address] [place] [address] PCP - General Internal Medicine 01/05/21
--- OUTSIDE RECORDS SUMMARY | 2024-11-07 10:01 | XMS_ITS | Encounter Summary ---
Author Organization [facility], Address [address] [place] [address] Phone Care Team Providers Care Warper Creeler Name Role Phone Yordy Abbott MD Primary Care Provider + [phone] Encounter Details Date Type Department Care Team (Late st Contact Info) Description 10/01/2024 Documentation Only [facility] [address] [place] [address] Xavier Powell DO [address] [place] [address] [place] [address] Social History Tobacco Use Types [...] Visit [facility] [address] [place] [address] Rubio Self MD [address] [facility] [place] [address] documented as of this encounter Visit Diagnoses Not on filedocumented in this encounter Care Teams Warper Creeler Relationship Specialty Start Date End Date Yordy Abbott MD [address] [place] [address] PCP - General Internal Medicine 01/12/24 documented as of this encounter
--- OUTSIDE RECORDS SUMMARY | 2024-11-07 10:01 | XMS_ITS | Patient Health Record ---
Author Organization [facility] Address [address] [place] [address] Care Team Providers Care Garbage Collection Supervisor Name Role Phone Andrew Dickens Primary Care Provider Yordy Abbott Unavailable Unavailable Reason For Referral [...] Insured Coverage Start Date Coverage End Date [facility] [address] [place] [address] [place], [place] [id number] Jorge Cadet Self - patient is the insured MEDICARE B [address] [facility] [place], [place] [id number] Jorge Cadet Self - patient is the insured
--- OUTSIDE RECORDS SUMMARY | 2024-11-07 10:01 | XMS_ITS | Encounter Summary ---
Author Organization [facility], Address [address] [place] [address] Phone Care Team Providers Care Human Resources District Manager Name Role Phone Yordy Abbott MD Primary Care Provider + [phone] Encounter Details Date Type Department Care Team (Late st Contact Info) Description 02/17/2023 Documentation Only [facility] [place], [address] [place] [address] Rubio Self MD [address] [place] [address] [place] [address] Social History Tobacco Use Types [...] Visit [facility] [address] [place] [address] Rubio Sefl MD [address] [place] [address] [place] [address] documented as of this encounter Visit Diagnoses Not on filedocumented in this encounter Care Teams Human Resources District Manager Relationship Specialty Start Date End Date Yordy Abbott MD [address] [place] [address] PCP - General Internal Medicine 01/12/24 documented as of this encounter
--- OUTSIDE RECORDS SUMMARY | 2024-11-07 10:01 | XMS_ITS | Encounter Summary ---
Author Organization [facility] [place], Address [address] [place] [address] Phone Care Team Providers Care Data Developer Name Role Phone Yordy Abbott MD Primary Care Provider + [phone] Encounter Details Date Type Department Care Team (Late st Contact Info) Description 06/06/2023 Documentation Only [facility] [address] [place] [address] Jose Arroyo MD [address] [facility] [place] [address] Social History Tobacco Use Types [...] Visit [facility] [place], [address] [facility] [address] [place] [address] Rubio Self MD [address] [facility] [place] [address] documented as of this encounter Visit Diagnoses Not on filedocumented in this encounter Care Teams Data Developer Relationship Specialty Start Date End Date Yordy Abbott MD [address] [place] [address] PCP - General Internal Medicine 01/12/24 documented as of this encounter
--- OUTSIDE RECORDS SUMMARY | 2024-11-07 10:01 | XMS_ITS | Encounter Summary ---
Author Organization [facility], Address [address] [place] [address] Phone Care Team Providers Care Airway Traffic Controller Name Role Phone Yordy Abbott MD Primary Care Provider + [phone] Encounter Details Date Type Department Care Team (Late st Contact Info) Description 03/15/2023 Documentation Only [facility] [place], [address] [facility] [place] [address] Rubio Self MD [address] [place] [address] [place] [address] Social History Tobacco Use Types [...] Visit [facility] [address] [place] [place] [address] Rubio Self MD [address] [place] [address] [place] [address] documented as of this encounter Visit Diagnoses Not on filedocumented in this encounter Care Teams Airway Traffic Controller Relationship Specialty Start Date End Date Yordy Abbott MD [address] [place] [address] PCP - General Internal Medicine 01/12/24 documented as of this encounter
--- OUTSIDE RECORDS SUMMARY | 2024-11-07 10:01 | XMS_ITS | Clinical Summary ---
Author Organization [facility], Address [address] [place] [address] [place] [address] Phone Care Team Providers Care Pool Coordinator Name Role Phone Yordy Abbott MD Primary Care Provider + [phone] Allergies Active Allergy Reactions Criticality Noted Date Comments Erythromycin Other (see comments) 01/17/2023 Other reaction(s): GI upset Fentanyl Swelling,Other (see comments) 01/17/2023 Other reaction(s): PATCH ONLY PATCH Macrolides And Ketolides Other (see comments) 03/21/2003 GI upset Medications acetaminophen (TYLENOL) 325 MG tablet Take by mouth every 6 (six) hours if needed for mild pain Active amLODIPine (NORVASC) 10 MG tablet Take 10 mg by mouth 1 (one) time each day Active ascorbic acid (VITAMIN C) 500 MG tablet Take 500 mg by mouth 1 (one) time each day Active atorvastatin (LIPITOR) 80 MG tablet Take 80 mg by mouth 1 (one) time each day Active chlorthalidone 25 MG tablet Take 25 mg by mouth 1 (one) time each day Active clopidogrel (PLAVIX) 75 MG tablet Take 75 mg by mouth 1 (one) time each day Active DULoxetine (CYMBALTA) [address] capsule Take 30 mg by mouth 1 (one) time each day Do not crush or chew. Active ferrous sulfate 325 (65 Fe) MG EC tablet Take 325 mg by mouth in the morning and 325 mg at noon and 325 mg in the evening. Take with meals. Do not crush, chew, or split. . Active isosorbide mononitrate (IMDUR) 30 MG 24 hr tablet Take 30 mg by mouth 1 (one) time each day Do not crush or chew. Active losartan (COZAAR) 100 MG tablet Take 100 mg by mouth 1 (one) time each day Active Melatonin 10 MG tablet Take by mouth Active memantine (NAMENDA) 10 MG tablet Take 10 mg by mouth in the morning and 10 mg in the evening. Active Multiple Vitamin (multivitamin) tablet Take 1 tablet by mouth 1 (one) time each day Active Riboflavin 100 MG capsule Take by mouth Active thiamine (VITAMIN B-1) 100 MG tablet Take 100 mg by mouth 1 (one) time each day Active traZODone (DESYREL) 100 MG tablet Take 100 mg by mouth every night Active chlorthalidone 25 MG tablet Take 1 tablet (25 mg total) by mouth 1 (one) time each day 90 tablet 3 11/08/2023 Active levETIRAcetam (Keppra) 750 MG tablet Take 750 mg by mouth 03/05/2023 Active donepezil (ARICEPT) 10 MG tablet Take 10 mg by mouth 1 (one) time each day For 30 days 10/10/2023 Active Dapagliflozin Propanediol (Farxiga) 10 MG tablet Take 10 mg by mouth 1 (one) time each day in the morning 90 tablet 3 04/16/2024 04/16/20 25 Active carvedilol (COREG) 25 MG tablet TAKE 1 TABLET BY MOUTH EVERY DAY IN THE MORNING AND IN THE EVENING WITH MEALS 180 tablet 3 09/20/2024 Active aspirin (ST LOUANN) 81 MG EC tablet Take 81 mg by mouth 1 (one) time each day Active PARoxetine (Paxil) 10 MG tablet Take 1 tablet (10 mg total) by mouth 1 (one) time each day in the morning 30 tablet 11 10/01/2024 10/01/19 26 Active Active Problems Problem Noted Date Diagnosed Date 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 Hypertensive disorder 03/21/2003 Overview (01/17/2023): Hypertension Renal stone 03/21/2003 Overview (01/17/2023): Kidney stone; oxalate Encounters Date Type Department Care Team Description 10/01/2024 2:00 PM EST Office [facility] [address] [place] [address] Rubio Self MD Stage 3b chronic kidney disease (HCC) (Primary Dx) 10/01/2024 Documentation Only [facility] [address] [place] [address] Xavier Powell DO 09/19/2024 Refill [facility] [address] [place] [address] Rubio Self MD from Last 3 Months Immunizations Name Administration Dates Next Due Tdap 08/07/2014 Social History Tobacco Use Types Packs/Day Years Used Date Smoking Tobacco: Never Alcohol Use Standard Drinks/Week Comments No 0 (1 standard drink = 0.6 oz pur e alcohol) Sex and Gender Information Value Date Recorded Sex Assigned at Not on file Legal Sex Male 3:02 PM EDT Gender Identity Not on file Sexual Orientation Not on file Plan of Treatment Upcoming Encounters Date Type Department Care Team (Late st Contact Info) Description 04/01/2025 2:00 PM EDT Office Visit [facility] [address] [place] [address] Rubio Self MD [address] [place] [address] [place] [address] Health Maintenance Due Date Last Done Comments Pneumococcal Vaccine: 65+ Ye ars (1 of 2 - PCV) 1957 Colorectal Cancer Screening: Annual FOBT 2000 Colorectal Cancer Screening: Colonoscopy 2000 Colorectal Cancer Screening: Sigmoidoscopy 2000 Influenza Vaccine (#1) 2024 Hepatitis B Vaccine Aged Out No longe r eligible based on patient's age to complete this topic Insurance MEDICARE [facility] Care Teams Pool Coordinator Relationship Specialty Start Date End Date Yordy Abbott MD [address] [place] [address] PCP - General Internal Medicine 01/12/24
--- OUTSIDE RECORDS SUMMARY | 2024-11-07 10:01 | XMS_ITS | Encounter Summary ---
Author Organization [facility] Address [address] [place] [address] Phone Care Team Providers Care Safety And Skill Based Pay Manager Name Role Phone Yordy Abbott MD Primary Care Provider + [phone] Encounter Details Date Type Department Care Team (Late st Contact Info) Description 01/11/2024 Documentation Only [facility] [address] [facility] [address] [facility] [place] [address] [place] [address] [place] [address] Social History Tobacco Use Types Packs/Day [...] Visit [facility] [address] [facility] [address] [place] [address] Rubio Self MD [address] [facility] [place] [address] documented as of this encounter Visit Diagnoses Not on filedocumented in this encounter Care Teams Safety And Skill Based Pay Manager Relationship Specialty Start Date End Date Yordy Abbott MD [address] [place] [address] PCP - General Internal Medicine 01/12/24 documented as of this encounter
--- OUTSIDE RECORDS SUMMARY | 2024-11-07 10:01 | XMS_ITS | Encounter Summary ---
Author Organization [facility] Address [address] [place] [address] Phone Care Team Providers Care Repair Department Manager Name Role Phone Yordy Abbott MD Primary Care Provider + [phone] Encounter Details Date Type Department Care Team (Late st Contact Info) Description 03/19/2024 Documentation Only [facility] [address] [place] [address] Domonique Valdes [address] [place] [address] Social History Tobacco Use Types Packs/Day [...] Visit [facility] [address] [place] [address] Rubio Self MD [address] [facility] [place] [address] documented as of this encounter Visit Diagnoses Not on filedocumented in this encounter Care Teams Repair Department Manager Relationship Specialty Start Date End Date Yordy Abbott MD [address] [place] [address] PCP - General Internal Medicine 01/12/24 documented as of this encounter
== END 2024-11-07 10:14 | disposition home or self-care (01) ==
PROVIDERS: PCP Internal Medicine; Visit Provider Hospitalist
DX: R91.8 Other nonspecific abnormal finding of lung field (principal); R59.1 Generalized enlarged lymph nodes; J41.8 Mixed simple and mucopurulent chronic bronchitis; R06.00 Dyspnea, unspecified; I25.10 Atherosclerotic heart disease of native coronary artery without angina pectoris; R13.10 Dysphagia, unspecified
CPT/HCPCS: 99214; G2211

== ENCOUNTER → 2024-11-07 09:41 | Outpatient (BNVA) | payer MEDICARE, SELFPAY | PROVIDERS: PCP Internal Medicine; Visit Provider Hospitalist | DX: J41.8 Mixed simple and mucopurulent chronic bronchitis (principal); I25.10 Atherosclerotic heart disease of native coronary artery without angina pectoris; R13.10 Dysphagia, unspecified; R91.8 Other nonspecific abnormal finding of lung field; R06.00 Dyspnea, unspecified; Z57.5 Occupational exposure to toxic agents in other industries | CPT/HCPCS: 99212 ==

== ENCOUNTER 2025-05-07 10:26 | Outpatient (AMB) | payer MEDICARE, SELFPAY ==
[2025-05-07 10:28] VITALS: BP 132/60; PULSE 56; O2SAT 99; BMI 28.5
--- NOTE | 2025-05-07 10:28 | A.OFFVIS_ITS ---
Vital Signs 05/07/25 10:28 Height 5 ft 6 in Weight 176 lb 5.917 oz BMI 28.5 BP 132/60 Blood Pressure Location Lt brachial Position Sitting Pulse 56 Pulse Source Pulse Oximeter Pulse Oximetry (%) 99 Oxygen Delivery Method Room Air Intake Visit Reasons: COPD Accompanied by: Spouse Allergies fentanyl Allergy (Verified 05/07/25 10:31) Swelling erythromycin base Adverse Reaction (Severe, Verified 05/07/25 10:31) Rash HPI Comments Details: The patient is a 75-year-old gentleman with a known history of CAD, aortic stenosis history of hemorrhagic strokes and now with worsening dyspnea on exertion. 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 He was exposed to multiple fumes and apparently the mask that he was provided was not sufficient. So therefore for about 20 years he was exposed to disease fumes and toxins. At some point, the patient was evaluated by Pulmonary back in early 1999 and he did undergo imaging studies at [facility] where he was told that he likely had lung cancer. Ultimately he did follow-up with Pulmonary that point which ruled out the possibility of lung cancer. He did indeed have underlying pulmonary nodules at that time. More recently the patient has been evaluated for his cardiac issues. He did undergo a recent cardiac CT scan a [facility] which was personally by me. This CT scan that was done on 12/26/2021 demonstrated new once id mediastinal or hilar lymphadenopathy along with evidence of chronic bronchitis and significant air trapping. The imaging study is very limited in view the fact that it is primarily focused on the cardiac pictures and we do not have full will imaging of the lung windows. Therefore really hard to know exactly if the nodular densities have changed in size and there is any evidence of airspace disease elsewhere. But, based on what I see I do not see any evidence of consolidations to be consistent with pneumonia. The patient has not had any recent pulmonary function studies. In regards his multiple ailments he did have a rheumatology evaluation many years ago which evaluated him for different connective tissue conditions including alkalosising spondylitis along with other rheumatological issues. He was told that his workup was negative for any these findings. In view of the significant lymphadenopathy and the underlying pulmonary nodules it is worthwhile looking into this issue again. His cardiac CT scan also demonstrated significant cardiac disease. 02/08/2022 the patient is here for pulmonary follow-up visit. He continues to have shortness of breath. Recently underwent an MRI of the brain demonstrating no acute disease. However he does have chronic changes. he did start the inhaler and his respiratory status has improved. The shortness of breath has been improving which is reassuring. Patient also underwent a repeat CT scan demonstrating persistent lymphadenopathy. He has small subcentimeter pulmonary nodules that are less concerning. In addition to that he did undergo blood work which was pretty nonrevealing as far as the etiology of the lymphadenopathy. I did speak to Cardiology. The per for further evaluation and testing of the lymphadenopathy before putting him through an intensive evaluation for the aortic stenosis and CAD. The patient understands that he is high risk for any procedure due to his underlying cardiovascular disease. Anesthesia did have a discussion with Cardiology the patient does have increased risk but at this point would need to have further evaluation for the lymphadenopathy in order to move for with a cardiac testing. The patient currently is agreeable to undergo endobronchial ultrasound bronchoscopy. Will plan to do that tomorrow February 09. 03/24/2022 the patient is here for a pulmonary follow-up visit. Overall she is doing about the same. Complaining of dyspnea on exertion. We did review his bronchoscopy results. His cultures were negative. Cytology was negative. He did undergo endobronchial ultrasound bronchoscopy in the lymph nodes were consistent with normal lymphocytes. No evidence of any malignancy or lymphoma noted. The patient did have further cardiac evaluation. Appears that he needs both cardiac bypass surgery in on aortic valve replacement. He was going to have surgery but then postponed it now for few weeks from now. In the meantime he did undergo pulmonary function studies. It appears that he has a mild degree of restrictive lung disease. The patient is concerned about surgery. I did explain to him from a pulmonary standpoint the patient does not have significant risks for postoperative pulmonary complications. However, he may need some oxygen specially if the restriction gets worse due to and a the cardiothoracic surgery. The patient may proceed with anesthesia and cardiac surgery from a pulmonary standpoint. 09/29/2022 the patient is here for a pulmonary follow-up visit. He did undergo his surgery. He is healing well from his cardiac surgery. However he has issues with his mentation. Sometimes he is more forgetful per his . He was given a prescription for Trelegy inhaler and he did pick it up. However, he has not used it. His does remind him but he also tends to forget. In the office we did review his last CT scan of the chest that he had recently. He does have some of day pattern in the pulmonary nodules in the lymphadenopathy appears to be stable if not better. With the mosaic pattern I did explain to the patient that using a bronchodilator will help improve his respiratory capacity. I did provide him with a nebulized treatment in the office in the patient did feel better. Therefore I will go ahead and order a nebulizer for him that he can use twice a day with the hope that he can improve his respiratory capacity. 04/06/2023 the patient is here for pulmonary follow-up visit. The patient is doing very well from a respiratory status. Seems like after having cardiac surgery his respiratory issues have subsided significantly. He has not required his nebulizer no longer using any inhalers. I did recommend he use a short- acting beta agonist as needed. I did give her prescribe a prescription. Otherwise he can also use the nebulizer as needed. He does have some slight end expiratory wheezing still on examination. He is having issues with question seizures and also vertigo. That is really limiting his the ability to exercise and walk. Hopefully if his symptoms subsided can start exercising more regularly in building up his respiratory capacity. His last CT scan of the chest was back in August 2022 demonstrating pulmonary nodules. Will plan to repeat the CT scan sometime in the winter of 2023 to follow-up with the pulmonary nodules. 04/27/2023 The patient is here for a hospital F/U visit. Having alot of GI complaints with N/V and diarrhea. He also had subjective fevers and chills, fatigue and weight loss. He was admitted to [facility] and had aCT abdomen followed by a CT chest. I personally reviewed the CT chest from 09/09 and 03/2023. The appears to have a 5cm mass like density in the left infrahilar area associated with a post obstructive pneumonia and pleural effusion. He was told her likely had cancer. He did not want to pursue any agressive dianostic interventions. He is aggreeable to a PET scan. In the meantime, we will keep him a longer course of antibiotics. 05/26/2023 the patient is here for pulmonary follow-up visit. Overall the patient has been feeling better. His GI symptoms have been subsiding as well. The subjective fevers and chills also have been subsiding. He completed 3 weeks of the Augmentin. The patient did undergo a PET scan. We personally reviewed. It appears that he does have some FDG activity around the periphery of the left infrahilar density on the left side. Within the density appears that it is without any significant metabolic activity. This suggests that is either necrotic tissue or Fluid. The fact that he responded to antibiotics suggesting likely a lung abscess. Also some FDG activity of the lymph nodes. He also has other extrapulmonary findings such as thickened bladder enlarged prostate. he is currently being evaluated for those issues by Urology. Based on the fact the patient clinically is feeling better will go ahead and we the CT scan 6 weeks after 3 additional weeks of antibiotics. If the area still continues to be abnormal then further diagnostic interventions are warranted. The patient is agreeable at this point. 07/27/2023 the patient is here for a pulmonary follow-up visit. Overall the patient is doing better. He has actually gained weight. Denies any significant cough or chest congestion. He did recently have a CT scan of the chest that we personally reviewed demonstrating interval resolution of the large left infrahilar mass suggesting an abscess. It appears to be completely treated after 2 courses of Augmentin. The patient does have poor dentition. Very suspicious for a polymicrobial micro aspiration resulting in the infection. Also to note that he had a seizure before this happened so therefore likely related to that episode as well. In the meantime will treating with chlorhexidine because of his poor dentition to minimize micro bacterial infections in the near future. He also needs to follow-up with a dentist regarding his bad molar disease. Patient continues to have some pulmonary nodules on his CT scan and will need further follow-up. In the meantime will start him on chlorhexidine and will request a barium swallow to assess for any reflux related disease. Still 11/02/2023 the patient is here for a pulmonary follow-up visit. The patient overall has been doing okay although recently started developing a cold like symptoms in his started developing increasing cough. Positive sick contacts. The patient denies any fevers or chills. He did have a CT scan of the chest personally by me in appears that the abscess has cleared and he is left with some minimal scarring in that area. He also has pulmonary nodules that are being followed. Will have to continue to follow on a yearly basis. Still having difficulty swallowing. Barium is abnormal. Does have an evaluation with GI in 1- 2 weeks. 05/09/2024 the patient is here for a pulmonary follow-up visit. Overall the patient has been doing very well. Actually lost a lot of weight but he has been intentional. He has been working on it. He also did follow-up with GI. They did recommend endoscopy but he opted not to since he has been feeling better. He denies any dysphagia or any significant regurgitation which is reassuring. He is going to monitor the symptoms. Explained to him if he does develop any difficulty with dysphagia or feeling like food is getting stuck or coming up definitely needs to follow-up with GI consider likely some type of balloon dil ation of the GE junction area where appears to be tight. She the patient was treated for a respiratory illness during the last visit but seems to be doing better at this time. He does have a rescue inhaler that he rarely uses. The patient does have underlying pulmonary nodules. Will plan to follow-up with a CT scan in early 2024 but will go ahead and push that out to 6 months from now. If the patient develops any worsening symptoms prior to that he will call for an earlier assessment. 11/07/2024 the patient is here for a pulmonary follow-up visit. Overall he is doing okay. Has been having issues with difficulty breathing when eating. Although he denies choking or aspiration. He has been having issues with his mental health. He has been having issues with dementia as per his and also with panic attacks and now working with a psychiatrist. His medications have been changed and he is trying to get adjust that to them. In the meantime he did have a recent CT scan of the chest that I personally reviewed. Nodules are stable now for about 2 years therefore is all reassuring the infectious process is now clear. He does have some mosaic pattern. Since the does have a Trelegy inhaler that he can try I did encourage him to do it and if that works for him I can also send him a different inhaler is too expensive. He also has a nebulizer he does not like to use it. For now he is doing okay will follow-up in 6-8 months if he has any issues he will call for an earlier assessment. 05/07/2025 the patient is here for pulmonary follow-up visit. Overall he is doing well from a respiratory status. Still complains of dyspnea on exertion. Kvex-oi-seyiazet severity. Although he has never use the Trelegy. He is still has it at home. He also needs a rescue inhaler available. Maybe he will use that when he has his symptoms of dyspnea. In the meantime he was admitted to the hospital back in February with colitis. He did have a CT scan of the abdomen and pelvis that demonstrated some slight reticular changes to the bases. In addition to that a chest x-ray that was clear. No evidence any active respiratory issues going on. He is to use his inhaler therapy. If the patient has any worsening symptoms he will call otherwise will follow-up in a year's time. [facility] Medical History (Updated 11/07/24 @ 14:45 by Josemanuel Vasquez MD) Dysphagia Lung mass Diabetes Aortic stenosis CAD (coronary artery disease) Dyspnea Chronic bronchitis Pulmonary nodules Lymphadenopathy Surgical History History of renal stent Hx of cholecystectomy Hx of carpal tunnel repair Family History Father Heart attack Stroke Mother Heart attack Cancer COPD (chronic obstructive pulmonary disease) Social History Alcohol intake: current Alcohol intake frequency: holidays/special occasions only Patient Tobacco Use Status: Never used Tobacco Review of Systems Const Denies body aches, Reports difficulty sleeping, Denies fatigue and Reports weight loss Eyes Denies exophthalmos ENT Denies change in voice Card Denies chest pain and Reports dyspnea on exertion Resp Denies chest congestion, Reports cough, Reports dyspnea on exertion and Denies wheezing GI Reports as per HPI, Denies bloating, Denies hematochezia, Denies change in stool character, Denies constipation, Denies diarrhea, Denies loose stools and Denies vomiting Reports no additional complaints Musc Reports back pain, Reports myalgias and Reports arthralgias Skin/Breast Denies rash Neuro Reports no additional complaints, Denies Abnormal speech present and Reports memory loss Psych Reports as per HPI and Reports memory loss Endo Reports no additional complaints and Denies fatigue Sea/Lymph Reports no additional complaints Aller/Immun Reports no additional complaints and Denies wheezing Physical Exam Vital Signs: Last Vital Signs Pulse 56 05/07/25 10:28 BP 132/60 05/07/25 10:28 Pulse Ox 99 05/07/25 10:28 Oxygen Delivery Method Room Air 05/07/25 10:28 BMI result Body Mass Index 28.5 Const General: alert Neck Neck: Yes normal visual inspection, Yes full ROM and Yes no lymphadenopathy Chest Chest palpation & inspection: normal inspection of the chest Resp Effort & Inspection: normal respiratory effort Auscultation: no wheezes and diminished lung sounds Cardio Rate: regular rate Rhythm: regular rhythm Heart sounds: S1 normal heart sound present, S2 normal heart sound present and Murmur heart sound present GI Palpation (GI): Soft to palpation and nontender Auscultation: normal bowel sounds Skin General skin exam: rashes and/or lesions noted Neuro Speech: No Abnormal speech present Assessment & Plan Assessment & Plan (1) Pulmonary nodules: Comment: stable x 2 years Code(s): R91.8 - Other nonspecific abnormal finding of lung field Category: Medical (2) Lymphadenopathy: Code(s): R59.1 - Generalized enlarged lymph nodes Category: Medical (3) Chronic bronchitis: Code(s): J42 - Unspecified chronic bronchitis Category: Medical Qualifiers: Chronic bronchitis type: mixed simple and mucopurulent Qualified Code(s): J41.8 - Mixed simple and mucopurulent chronic bronchitis (4) Dyspnea: Comment: better Code(s): R06.00 - Dyspnea, unspecified Category: Medical Qualifiers: Dyspnea type: dyspnea on exertion Qualified Code(s): R06.00 - Dyspnea, unspecified (5) CAD (coronary artery disease): Code(s): I25.10 - Atherosclerotic heart disease of [place] coronary artery without angina pectoris Category: Medical Qualifiers: Associated angina: without angina Coronary Disease-Associated Artery/Lesion type: unspecified vessel or lesion type [place] vs. transplanted heart: [place] heart Qualified Code(s): I25.10 - Atherosclerotic heart disease of [place] coronary artery without angina pectoris (6) Dysphagia: Code(s): R13.10 - Dysphagia, unspecified Category: Medical Qualifiers: Dysphagia type: unspecified Qualified Code(s): R13.10 - Dysphagia, unspecified Plan Trial Trelegy MIKE as needed Follow-up in 8-12 months Medications: New albuterol sulfate 90 mcg/actuation 2 inhalations inhalation Q6H PRN 18 grams 12RF shortness of breath or wheezing 30 days J44.9 - Chronic obstructive pulmonary disease, unspecified Coding Level of Care Code Est Pt Level 4 (32248) Complex EM visit Add On G2211 Diagnoses Pulmonary nodules R91.8 Lymphadenopathy R59.1 Mixed simple and mucopurulent chronic bronchitis J41.8 Chronic bronchitis type: mixed simple and mucopurulent Dyspnea on exertion R06.00 Dyspnea type: dyspnea on exertion Coronary artery disease involving [place] heart without angina pectoris, unspecified vessel or lesion type I25.10 Associated angina: without angina Coronary Disease-Associated Artery/Lesion type: unspecified vessel or lesion type [place] vs. transplanted heart: [place] heart Dysphagia, unspecified type R13.10 Dysphagia type: unspecified Time Spent (min) 17
--- OUTSIDE RECORDS SUMMARY | 2025-05-07 11:47 | XMS_ITS | Patient Health Record ---
Author Organization [facility] Address [address] [place] [address] Care Team Providers Care Crystal Mounter Name Role Phone Andrew Dickens Primary Care Provider [phone] Yordy Abbott Unavailable Unavailable Reason For Referral No Information Medications Medication SIG (Take, Route, Frequency, Duration) Notes Start Date End Date Status OXYCODONE-ACETAMINOP HEN 5-325 MG TAB 0 1-2 prn headacheand back pain, used 10/month; Duration: 30 *please review for potential update for e-prescription and drug interaction check* 05/06/2016 Active Atorvastatin Calcium 20 MG 0 Oral 1 qhs; Duration: 30 move to 05/06/[address] 40 MG TAB 0 1 qam; Duration: 30 *please review for potential update for e-prescription and drug interaction check* 05/06/2016 Active LOSARTAN-HYDROCHLORO THIAZIDE 100-12.5 MG TAB 0 1 qam; Duration: 30 *please review for potential update for e-prescription and drug interaction check* 05/06/2016 Active METFORMIN HCL 500 MG TABLET 0 1 bid; Duration: 30 *please review for potential update for e-prescription and drug interaction check* 05/06/2016 Active Multi-Vitamin 0 Oral 1 qd; Duration: 30 05/06/2016 Active Vitamin B-2 100 mg 0 Oral 1 bid; Duration: 30 Leonel Cary 03/05/2016 Active DIVALPROEX SOD ER 250 MG TAB 120 Increase 1 tab q 7 days up to full dose 4 tabs qhs.; Duration: 30 *please review for potential update for e-prescription and drug interaction check* 05/07/2016 Active DIVALPROEX SOD ER 500 MG TAB 60 1 tab bid.; Duration: 30 *please review for potential update for e-prescription and drug interaction check* change dose to 500 mg tabs 07/21/2016 Active AMLODIPINE BESYLATE 5 MG TAB 0 1 qhs; Duration: 30 *please review for potential update for e-prescription and drug interaction check* 05/06/2016 Active ASPIRIN EC 81 MG TABLET 0 1 qd; Duration: 30 *please review for potential update for e-prescription and drug interaction check* 05/06/2016 Active Plan Of Treatment No Information Insurance Providers Payer Name Payer Address Payer Phone Subscriber Number Group Number Insured Name Patient Relationship to Insured Coverage Start Date Coverage End Date [facility] [address] [place], [place] [id number] Jorge Cadet Self - patient is the insured MEDICARE B [address] [place] [id number] Jorge Cadet Self - patient is the insured
--- OUTSIDE RECORDS SUMMARY | 2025-05-07 11:47 | XMS_ITS | Encounter Summary ---
Author Organization [facility] Address [address] [place] [address] Care Team Providers Care Vinegar Maker Name Role Phone Yordy Abbott MD Primary Care Provider + [phone] Encounter Details Date Type Department Care Team (Late st Contact Info) Description 04/29/2025 Telephone Gastroenterology - [address] [facility] [address] [place] [phone] Charley Harris MD [address] [address] Social History Tobacco Use Types Packs/Day Years Used Date Smoking Tobacco: Never Smokeless Tobacco: Never Alcohol Use Standard Drinks/Week Comments Not Currently 0 (1 standard drink = 0.6 oz pur e alcohol) twice a year Sex and Gender Information Value Date Recorded Sex Assigned at Not on file Legal Sex Male 4:30 PM EST Gender Identity Not on file Sexual Orientation Not on file documented as of this encounter Progress Notes * Gerri Del Angel - 04/29/2025 1:09 PM EDT Pts is calling requesting a call back regarding Omeprazole. Pt has an issue with diarrhea and was prescribed omeprazole. Pts says she searched up side effects of Omeprazole and an effect was diarrhea. She's wondering why was he prescribed this if his issue is the constant diarrhea ? documented in this encounter Plan of Treatment Upcoming Encounters Date Type Department Care Team (Late st Contact Info) Description 06/20/2025 1:00 PM EDT Office Visit Gastroenterology - [address] [place] [address] Mona Juárez PA [address] [place] [address] documented as of this encounter Visit Diagnoses Not on filedocumented in this encounter Care Teams Vinegar Maker Relationship Specialty Start Date End Date Yordy Abbott MD [address] [place] [id number] PCP - General 09/30/17 documented as of this encounter
--- OUTSIDE RECORDS SUMMARY | 2025-05-07 11:47 | XMS_ITS | Encounter Summary ---
Author Organization [facility], Address [address] [place] [address] Phone Care Team Providers Care Religious Studies Professor Name Role Phone Yordy Abbott MD Primary Care Provider + [phone] Encounter Details Date Type Department Care Team (Late st Contact Info) Description 02/17/2023 Documentation Only [facility], [address] [place] [address] Rubio Self MD [address] [place] [address] [place] [address] Social History Tobacco Use Types [...] Care Team (Late st Contact Info) Description 10/02/2025 1:45 PM EST Office Visit [facility] [address] [place] [address] Rubio Self MD [address] [place] [address] [place] [address] documented as of this encounter Visit Diagnoses Not on filedocumented in this encounter Care Teams Religious Studies Professor Relationship Specialty Start Date End Date Yordy Abbott MD [address] [place] [address] PCP - General Internal Medicine 01/12/24 documented as of this encounter
--- OUTSIDE RECORDS SUMMARY | 2025-05-07 11:47 | XMS_ITS | Clinical Summary ---
Author Organization [facility] Address [address] [place] [address] Care Team Providers Care Solution Strategist Name Role Phone Yordy Abbott MD Primary Care Provider [phone] Social History Tobacco Use Types Packs/Day Years [...] 1 - PCV) 2016 Influenza Vaccine (#1) 2025 RSV Adult > 60+ Yrs or Pregn ant (1 - 1-dose 75+ series) 2026 Hepatitis B Vaccines Aged Out No long er eligible based on patient's age to complete this topic RSV Ped < 20 months Aged Out No longe r eligible based on patient's age to complete this topic Care Teams Solution Strategist Relationship Specialty Start Date End Date Yordy Abbott MD [address] [place] [address] PCP - General Internal Medicine 01/05/21
== END 2025-05-07 11:02 | disposition home or self-care (01) ==
PROVIDERS: PCP Internal Medicine; Visit Provider Hospitalist
DX: R91.8 Other nonspecific abnormal finding of lung field (principal); R59.1 Generalized enlarged lymph nodes; J41.8 Mixed simple and mucopurulent chronic bronchitis; R06.00 Dyspnea, unspecified; I25.10 Atherosclerotic heart disease of native coronary artery without angina pectoris; R13.10 Dysphagia, unspecified
CPT/HCPCS: 99214; G2211

== ENCOUNTER → 2025-05-07 10:26 | Outpatient (BNVA) | payer MEDICARE, SELFPAY | PROVIDERS: PCP Internal Medicine; Visit Provider Hospitalist | DX: R91.8 Other nonspecific abnormal finding of lung field (principal); R59.1 Generalized enlarged lymph nodes; J41.8 Mixed simple and mucopurulent chronic bronchitis; R06.09 Other forms of dyspnea; I25.10 Atherosclerotic heart disease of native coronary artery without angina pectoris; R13.10 Dysphagia, unspecified | CPT/HCPCS: 99212 ==